=== PATIENT | male | born 1945 | race Caucasian/White ===

== ENCOUNTER → 2018-06-03 10:52 | Outpatient (CLI) | payer MEDICARE, SELFPAY ==
[2018-06-03 11:25] LABS: Bilirubin Moderate (Negative); Blood Large (Negative); Clarity Cloudy; Glucose Negative (Negative); Ketones 15 mg/dL (Negative); Leukocyte Esterase Negative (Negative); Nitrite Positive (Negative); Specific Gravity 1.025 (1.005-1.025); pH 5.5 (5-8)
[2018-06-03 11:50] LABS: Bacteria Moderate HPF (Negative); C & S Indicated? Yes; Casts Negative LPF (Negative); Crystals Negative HPF (Negative); Epithelial Cells Negative HPF (Negative); Mucus Negative (Negative); Other Cells Negative (Negative); RBC >50 (0-2); WBC Negative HPF (0-5)
== END ==
PROVIDERS: PCP Internal Medicine Geriatric Medicine; Visit Provider Internal Medicine Geriatric Medicine
DX: R31.0 Gross hematuria (principal)
CPT/HCPCS: 81003; 81015; 87086

== ENCOUNTER 2021-06-02 18:15 | Inpatient (IN) | payer MEDICARE, SELFPAY ==
[2021-06-02] VITALS (19 sets, daily range): BP systolic 122–148; BP diastolic 74–86; PULSE 54–80; RESP 8–21; TEMP 37.1; O2SAT 96–100
--- NOTE | 2021-06-02 19:00 | RT.EKG_ITS ---
APPROVED REPORT Exam: Resting ECG Reason for Exam: confusion Patient Location: E HR:74 bpm ECG Measurements Heart Rate 74 AXIS AR 145 P 66 QRSd 73 QRS 52 QT 401 T 63 QTc 453 Conclusion Sinus rhythm...normal P axis, V-rate 60- 99 Atrial premature complexes...SV complexes w/ short R-R intvls
--- NOTE | 2021-06-02 19:00 | DI.RAD_ITS ---
Exam(s) XR CHEST 2V PA LATERAL EXAM: XR CHEST 2V PA LATERAL CLINICAL HISTORY: confusion TECHNIQUE: 2D digital imaging was performed. COMPARISON: No exams were available for comparison FINDINGS: Heart size normal. Ascending aorta ectatic. Lungs clear. No infiltrate, effusion or pneumothorax. Degenerative changes in the spine. IMPRESSION: No acute abnormality. DATA REPOSITORY: RADIATION DOSE DELIVERED:
--- NOTE | 2021-06-02 19:00 | DI.CT_ITS ---
Exam(s) CT HEAD WO EXAM: CT HEAD WO CLINICAL HISTORY: confusion. TECHNIQUE: Imaging Protocol: Axial computed tomography images with coronal and sagittal reformatted images were created and reviewed COMPARISON: No exams were available for comparison FINDINGS: Ventricles and Extra axial spaces: Normal in size and morphology for the patient's age. Hemorrhage: None. Cerebral parenchyma: Atrophy. Mild white matter changes consistent with small vessel disease. Midline shift: None. Brainstem/Cerebellum: Normal. Calvarium: Normal. Visualized Paranasal sinuses/Mastoids: Mucosal thickening ethmoid sinuses IMPRESSION: No acute abnormality. RADIATION DOSE DELIVERED: 832.81mGy.cm Total DLP 832.81mGy.cm Total DLP DATA REPOSITORY: All CT scans at this facility are submitted to the National Radiology Data Registry (NRDR) Dose Index Registry (DIR) with the [employer] (ACR). RADIATION OPTIMIZATION: All CT scans at this facility use at least one of these dose optimization te chniques: automated exposure control; mA and/or kV adjustment per patient size (includes targeted exa ms where dose is matched to clinical indication); or iterative reconstruction.
--- NOTE | 2021-06-02 19:49 | ED.GENADUL_ITS ---
Discharge Plan Disposition Patient Disposition: HOME Condition: Serious Discharge Details Chief Complaint: AMS/LOC Clinical Impression: Confusion Primary Care Provider: Mariangel Tubbs ED Provider: Ct [facility] Home Meds and New Rx's Prescriptions: No Action mirtazapine [Remeron] 15 mg Tablet 15 mg PO TID RF: [address] brain does not show acute abnormality, CTA head and neck does not show acute abnormality Patient initially was cooperative although confused and quite weak I do not see any medical reason for patient's confusion I suspect he has progre ssion of his dementia Of note, at approximately 10:00 he became very agitated and confused, likely consistent with sundowning He was given 1.5 mg of Ativan and 2 mg of Haldol after reviewing EKG secondary to agitation, he became very combative with staff and his has left, she was very upset Patient will need to be admitted to the hospital for further evaluation observation Will observe closely as he has had a large dose of Ativan for age At this time he is resting comfortably at reevaluation in the room He is a DNR/DNI per who is his DPOA He otherwise has a negative diagnostic work-up Medical Records Medical records reviewed: Yes I reviewed the patient's medical records. Lab Data Lab results reviewed: Yes I reviewed the patient's lab results. HPI General Mode of arrival: wheelchair . Date/Time Provider Initiated Documentation: 06/02/21 18:42 . Limitations to Documentation: altered mental status . Information obtained by: family . HPI Narrative: This 75-year-old gentleman with history of Alzheimer's dementia presents with progressively worsening confusion over the past several days. Today he was nonsensical per . He states this is gradual in onset. She cannot really been drinking much at home which is why she is concerned. She states a similar episode occurred several years ago and patient received IV fluid resuscitation and was symptomatically improved. Denies any falls or injuries. Denies acute onset of symptoms. Secondary to weakness and confusion, brought him in for evaluation. Denies any urinary complaints. Denies any new medications. Denies any potential overdoses. Reportedly has had neurological testing at [facility] and was diagnosed with dementia 6 years ago. Not currently taking medications for the reportedly Related Data Home Medications Medication Instructions Recorded Confirmed mirtazapine [Remeron] 15 mg PO TID 06/02/21 06/02/21 Allergies Allergy/AdvReac Type Severity Reaction Status Date / Time No Known Allergies Allergy Unverified 06/02/21 18:38 General Stated Complaint: AMS/LOC GAGE: 3 Review of Systems Unobtainable due to mental status PFS Social History Smoking/Tobacco Use Status: Former Tobacco Use Smoking risk assessment performed?: Yes Alcohol Intake: former Drug use: Never Do you feel safe at home: Yes Do you feel safe in your relationship?: Yes Exam Const General: well developed and well groomed Orientation: alert Limitations: altered mental status HENMT Other: No visible sign of trauma, no hemotympanum Eyes Pupils: PERRL Neck Other: No carotid bruit Chest Chest: normal inspection of the chest Resp Effort & Inspection: normal respiratory effort Cardio Rate: regular rate Rhythm: regular rhythm GI Inspection: normal to inspection Skin General skin exam: no rashes or lesions noted Neuro General: patient alert Other: Gait unable to be assessed, able to follow basic commands Strength intact bilateral in upper lower extremities, negative pronator drift, negative heel gann Extrem General: normal to inspection Other: Distal pulses intact Psych Appearance: well kempt Speech and Movement: delayed speech and slowed movement Mood: labile mood Attitude: cooperative Course Vital Signs Vital signs: Vital Signs Temperature 37.1 C 06/02/21 18:34 Pulse 80 06/02/21 18:34 Respiratory Rate 16 06/02/21 18:34 Blood Pressure 122/86 06/02/21 18:34 Pulse Oximetry 97 06/02/21 18:34 Temperature 37.1 C 06/02/21 18:34 Temperature Source Temporal Artery Scan 06/02/21 18:34 Pulse 80 06/02/21 18:34 Respiratory Rate 16 06/02/21 18:34 Respiratory Effort Non-Labored 06/02/21 18:39 Blood Pressure 122/86 06/02/21 18:34 Blood Pressure Position Sitting 06/02/21 18:34 Pulse Oximetry 97 06/02/21 18:34 Oxygen Delivery Method Room Air 06/02/21 18:34 Oxygen Flow Rate 0 06/02/21 18:34 Pain Level 0 06/02/21 18:34
[2021-06-02 20:01] LABS: Abs Immature Grans 0.02 10^3/uL (0.0-0.06); Absolute Basophil Count 0.03 10^3/uL (0.0-0.2); Absolute Eosinophil Count 0.14 10^3/uL (0.0-0.7); Absolute Lymphocyte Count 1.12 10^3/uL (1.2-3.4); Absolute Monocyte Count 0.34 10^3/uL (0.1-0.8); Absolute Neutrophil Count 3.82 10^3/uL (1.2-6.7); Basophils % 0.5; Eosinophils % 2.6; HCT 39.6 % (40.0-50.0); HGB 13.5 g/dL (13.5-17.5); Immature Grans % 0.4; Lymphocytes % 20.5; MCH 31.5 pg (27.0-33.0); MCHC 34.1 % (32.0-36.0); MCV 92.3 fL (80-95); MPV 8.8 fL (8.0-11.0); Monocytes % 6.2; Neutrophils % 69.8; Nucleated RBC 0 %; Platelet Count 216 10^3/uL (130-400); RBC 4.29 10^6/uL (4.36-5.78); RDW 12.5 % (11.8-14.1); RDW-SD 42.6 fL; WBC 5.47 10^3/uL (4.4-10.8)
[2021-06-02] MEDS: Lactated Ringers 1,000 ML 1000 ML IV (20:07)
--- NOTE | 2021-06-02 20:07 | DI.VRAD_ITS ---
PROCEDURE INFORMATION: Exam: CT Head Without Contrast Exam date and time: 06/02/2021 7:02 PM Age: 75 years old Clinical indication: Altered mental status/memory loss; Patient HX: Confusion TECHNIQUE: Imaging protocol: Computed tomography of the head without contrast. COMPARISON: No relevant prior studies available. FINDINGS: Brain: There is no acute intracranial hemorrhage, mass effect or midline shift. No large acute territorial infarct identified. There are patchy regions of hypodensity in the periventricular and subcortical white matter, likely on the basis of chronic microvascular ischemic disease. Cerebral ventricles: The ventricles and sulci are prominent in size, which is at least in part due to global cerebral volume loss. Paranasal sinuses: There is mild mucosal thickening in the ethmoid sinuses. Mastoid air cells: Visualized mastoid air cells are well aerated. Bones/joints: Unremarkable. No acute fracture. Soft tissues: Unremarkable. IMPRESSION: No acute intracranial hemorrhage, mass effect or midline shift. Dictated and Authenticated by: Joan Rosado MD. Ordering:ZACK Fofana MD
[2021-06-02 20:18] LABS: ALT 17 U/L (16-63); AST 13 U/L (15-37); Albumin 3.5 g/dL (3.4-5.0); Alkaline Phosphatase 75 U/L (46-116); Anion Gap 4.3 mmol/L (3-11); BUN 12 mg/dL (7-18); Bilirubin, Total 0.5 mg/dL (0.2-1.0); CO2 29.7 mmol/L (21.0-32.0); CREATININE 1.3 mg/dL (0.70-1.30); Calcium 8.6 mg/dL (8.5-10.1); Chloride 107 mmol/L (98-107); Estimated GFR 53.53 (mL/min/1.73m2); Glucose 122 mg/dL (74-106); Potassium 3.8 mmol/L (3.5-5.1); Sodium 141 mmol/L (136-145); Total Protein 6.8 g/dL (6.4-8.2)
[2021-06-02 20:19] LABS: Troponin I < 0.05 ng/mL (<0.06)
[2021-06-02 20:24] LABS: Bilirubin Negative (Negative); Blood Trace-lysed (Negative); Clarity Clear (Clear); Glucose Negative (Negative); Ketones Negative (Negative); Leukocyte Esterase Negative (Negative); Nitrite Negative (Negative); Specific Gravity >= 1.030 (1.005-1.025)
--- NOTE | 2021-06-02 20:30 | DI.CT_ITS ---
Exam(s) CT BRAIN NECK CTA EXAM: CT BRAIN NECK CTA CLINICAL HISTORY: confusion, expressive aphasia. TECHNIQUE: Imaging Protocol: Axial CT angiography was performed with multi-slice acquisition and mu lti-planar and/or 3D reconstructions. CONTRAST MATERIAL: Intravenous: Omnipaque 350 Contrast volume:85 ml COMPARISON: CR,XR XR CHEST 2V PA LATERAL from 06/02/2021 CR,XR XR CHEST 2V PA LATERAL from 06/02/2021 FINDINGS: CT Head W/O and W contrast: Ventricles and Extra axial spaces: Normal in size and morphology for the patient's age. Hemorrhage: None. Cerebral parenchyma: Normal. Midline shift: None. Brainstem/Cerebellum: Normal. Calvarium: Normal. Visualized Paranasal sinuses/Mastoids: Clear. Soft Tissues: Unremarkable. Enhancement: Normal. CTA Brain W: Internal Carotid Arteries: Petrous: Normal. Cavernous: Normal. Cerebral: Normal. Middle Cerebral Arteries: Right: No aneurysm, occlusion or significant stenosis. Left: No aneurysm, occlusion or significant stenosis. Anterior Cerebral Arteries: Right: No aneurysm, occlusion or significant stenosis. Left: No aneurysm, occlusion or significant stenosis. Posterior cerebral Arteries: Right: No aneurysm, occlusion or significant stenosis. Left: No aneurysm, occlusion or significant stenosis. Vertebral Arteries: Right: No aneurysm, occlusion or significant stenosis. Left: No aneurysm, occlusion or significant stenosis. Basilar Artery: No aneurysm, occlusion or significant stenosis. CTA Neck W: Common Carotid: Right: No dissection, occlusion or significant stenosis. Minimal plaque at the bulb. Left: No dissection, occlusion or significant stenosis. Minimal plaque at the bulb. External Carotid: Right: No occlusion or significant stenosis. Left: No occlusion or significant stenosis. Internal Carotid: Right: Minimal plaque proximally. No dissection, occlusion or significant stenosis. Left: Minimal plaque proximally. No dissection, occlusion or significant stenosis. Vertebral Artery: Right: No dissection, occlusion or significant stenosis. Left: No dissection, occlusion or significant stenosis. Lung Apices: Normal. Bones: Degenerative disc changes greatest at C5-6 and C6-7.. Soft Tissues: Normal. Partially imaged right-sided aortic arch 3.4 cm. IMPRESSION: 1. Normal CTA examination of the [place]. 2. Unremarkable CT Head. 3. Probable right-sided aortic arch. Minimal plaque in the common carotid bulbs and proximal interna l carotid arteries. No significant stenosis. RADIATION DOSE DELIVERED: 1,302.22mGy.cm Total DLP DATA REPOSITORY: All CT scans at this facility are submitted to the National Radiology Data Registry (NRDR) Dose Index Registry (DIR) with the [employer] (ACR). RADIATION OPTIMIZATION: All CT scans at this facility use at least one of these dose optimization te chniques: automated exposure control; mA and/or kV adjustment per patient size (includes targeted exa ms where dose is matched to clinical indication); or iterative reconstruction.
[2021-06-02 20:32] LABS: Bacteria Negative HPF (Negative); C & S Indicated? No; Casts Negative LPF (Negative); Crystals Negative HPF (Negative); Epithelial Cells Rare HPF (Negative); Mucus Trace (Negative); WBC 0-2 HPF (0-5)
--- NOTE | 2021-06-02 20:39 | DI.VRAD_ITS ---
PROCEDURE INFORMATION: Exam: XR Chest Exam date and time: 06/02/2021 7:02 PM Age: 75 years old Clinical indication: Other: Confusion TECHNIQUE: Imaging protocol: XR of the chest. Views: 2 views. COMPARISON: No relevant prior studies available. FINDINGS: Lungs: No consolidation. Pleural spaces: No pleural effusion. No pneumothorax. Heart/Mediastinum: There is widening of the mediastinum, which could be positional in nature. No cardiomegaly. Bones/joints: Unremarkable. IMPRESSION: 1. No acute pneumonia or pulmonary edema. 2. Widening of the mediastinum, which could be positional in nature. However, if there is clinical concern for aortic disease, CTA of the chest may be obtained for further evaluation. Dictated and Authenticated by: Joan Rosado MD. Ordering:ZACK Fofana MD
[2021-06-02] MEDS: Omnipaque 350 MG/ML 100 ML BTL IJ (21:16)
[2021-06-02] MEDS: Normal Saline - Diluent 50 ML VIAL IV (21:17)
--- NOTE | 2021-06-02 22:29 | DI.VRAD_ITS ---
PROCEDURE INFORMATION: Exam: CT Angiography Head With Contrast, Arteriography Exam date and time: 06/02/2021 8:40 PM Age: 75 years old Clinical indication: Patient HX: Confusion, expressive aphasia TECHNIQUE: Imaging protocol: Computed tomography angiography of the head with contrast. Exam focused on the arteries. 3D rendering (Not supervised by radiologist): MIP and/or 3D reconstructed images were created by the technologist. COMPARISON: CT HEAD WO 06/02/2021 7:23 PM FINDINGS: ANTERIOR CIRCULATION: Right internal carotid artery: Unremarkable. Intracranial segment is patent with no significant stenosis. No aneurysm. Right middle cerebral artery: Unremarkable. No occlusion or significant stenosis. No aneurysm. Right anterior cerebral artery: Unremarkable. No occlusion or significant stenosis. No aneurysm. Left internal carotid artery: Unremarkable. Intracranial segment is patent with no significant stenosis. No aneurysm. Left middle cerebral artery: Unremarkable. No occlusion or significant stenosis. No aneurysm. Left anterior cerebral artery: Unremarkable. No occlusion or significant stenosis. No aneurysm. POSTERIOR CIRCULATION: Right vertebral artery: Unremarkable. No occlusion or significant stenosis. No aneurysm. Left vertebral artery: Unremarkable. No occlusion or significant stenosis. No aneurysm. Basilar artery: Unremarkable. No occlusion or significant stenosis. No aneurysm. Right posterior cerebral artery: Unremarkable. No occlusion or significant stenosis. No aneurysm. Left posterior cerebral artery: Unremarkable. No occlusion or significant stenosis. No aneurysm. Brain: Mild volume loss within the brain parenchyma. Multifocal and confluent areas of low attenuation are seen within the subcortical and periventricular white matter. No midline shift. No loss of [place]-white differentiation to suggest an acute cortical infarct. Cerebral ventricles: No hydrocephalus. Bones/joints: Unremarkable. No acute fracture. Soft tissues: Unremarkable. IMPRESSION: 1. No large vessel stenosis or occlusion within the intracranial arteries. 2. Mild volume loss with white matter changes most consistent with chronic microvascular ischemic disease. PROCEDURE INFORMATION: Exam: CT Angiography Neck With Contrast Exam date and time: 06/02/2021 8:40 PM Age: 75 years old Clinical indication: Patient HX: Confusion, expressive aphasia TECHNIQUE: Imaging protocol: Computed tomography angiography of the neck with contrast. 3D rendering (Not supervised by radiologist): MIP and/or 3D reconstructed images were created by the technologist. COMPARISON: CT HEAD WO 06/02/2021 7:23 PM FINDINGS: Right common carotid artery: No stenosis. No dissection or occlusion. Right internal carotid artery: Minimal atherosclerotic plaque within the right carotid bulb and proximal right ICA without stenosis, occlusion or dissection. Right external carotid artery: No occlusion or stenosis of the origin. Left common carotid artery: No stenosis. No dissection or occlusion. Left internal carotid artery: Minimal atherosclerotic plaque within the left carotid bulb and proximal left ICA without stenosis, occlusion or dissection. Left external carotid artery: Mild atherosclerotic plaque within the origin of the left external carotid artery without stenosis, occlusion or dissection. Right vertebral artery: No stenosis. No dissection or occlusion. Left vertebral artery: No stenosis. No dissection or occlusion. Aorta: A partially imaged possible right-sided aortic arch is seen, only partially imaged and evaluated on this study. Soft tissues: Normal. No significant soft tissue swelling. Bones/joints: No acute fracture. Lungs: The lung apices are well aerated. IMPRESSION: 1. No stenosis, dissection or occlusion within the extracranial arteries. 2. Possible right-sided aortic arch. This is only partially imaged and evaluated on this study. REFERENCES: NASCET CRITERIA. The degree of internal carotid artery stenosis is based on NASCET criteria. Normal is no stenosis. Mild is less than 50% stenosis. Moderate is 50-69% stenosis. Severe is 70% to 99% stenosis. Total occlusion is no detectable patent lumen. Dictated and Authenticated by: Charlene Selby MD. Ordering:ZACK Fofana MD
[2021-06-02] MEDS: LORazepam 2 MG/ML VIAL 0.5 MG IVP (23:00)
--- NOTE | 2021-06-02 23:04 | NUR.NOTE ---
Nursing Note: 06/02/21 [id number] Patient pulled out his IV, drsg applied and bleeding controlled. Patient trying to get out of bed, pulling at bp cuff and monitor and storage bin tender leads. ER Provider aware and new order received.
--- NOTE | 2021-06-02 23:07 | NUR.NOTE ---
Nursing Note: Patient assisted to use urinal, medicated as ordered by ER Provider for agitation. Warm blankets applied and lights dimmed in room.
--- NOTE | 2021-06-02 23:27 | W.PM.HP.N ---
Date of service: 06/02/21 Time of Service: 23:27 Assessment and Plan Assessment and plan (1) Confusion: Status: Acute Assessment and plan: At this point one would have to say this is simply progression of underlying known dementia (though pace is apparently rapid), but this remains a diagnosis of exclusion. It is possible some more acute process is brewing, precipitating this decline, but none evident at present. For now will manage symptomatically with prn ativan and Haldol, and will gently hydrate overnight. Will hold Remeron and will also check UDS (though no h/o exposure). ER reviewed ADs with , requests DNR. History of Present Illness History of Present Illness Chief Complaint: confusion Narrative: 75 male with h/o Parkinson's and dementia. Here with four days of worsening confusion and agitation, to point where unable to care for him. In ER w/u remarkably unrevealing, with normal CBC, chemistries (save glucose 122), urine, CXR and CT head. Patient given 0.5 Ativan and is receiving 2 Haldol IV at this writing. Patient unable to provide any history. reports to ER no new medications, remains on Remeron only, and no recent change in dose. Review of Systems Unobtainable due to mental status [facility] Social History Smoking/Tobacco Use Status: Former Tobacco Use Smoking risk assessment performed?: Yes Alcohol Intake: former Drug use: Never Do you feel safe at home: Yes Do you feel safe in your relationship?: Yes Meds Allergies and Home Medications Allergies Allergy/AdvReac Type Severity Reaction Status Date / Time No Known Allergies Allergy Unverified 06/02/21 18:38 Home Medications Medication Instructions Recorded Confirmed Type mirtazapine [Remeron] 15 mg PO TID 06/02/21 06/02/21 History Exam Narrative Exam Narrative: 130/77, 64, 37.1, 18, 97% RA. HEENT atraumatic; neck supple; lungs clear; heart RRR; abdomen soft and NT; extremities w/o edema; neuro restless, trying to get out of stretcher, Ox1, cogwheeling, moves all 4s Results Labs Result diagrams: 06/02/21 19:53 06/02/21 19:53 Labs: Laboratory Results - last 24 hr 06/02/21 06/02/21 06/02/21 19:53 19:53 20:10 WBC 5.47 RBC 4.29 L Hgb 13.5 Hct 39.6 L MCV 92.3 MCH 31.5 MCHC 34.1 RDW 12.5 Plt Count 216 MPV 8.8 Immature Gran % 0.4 Neutrophils % 69.8 Lymphocytes % 20.5 Monocytes % 6.2 Eosinophils % 2.6 Basophils % 0.5 Nucleated RBC % 0 Absolute Neutrophils 3.82 Absolute Lymphocytes 1.12 L Absolute Monocytes 0.34 Absolute Eosinophils 0.14 Absolute Basophils 0.03 Sodium 141 Potassium 3.8 Chloride 107 Carbon Dioxide 29.7 Anion Gap 4.3 BUN 12 Creatinine 1.3 Estimated GFR/1.73 m2 53.53 Glucose 122 H Calcium 8.6 Total Bilirubin 0.5 AST 13 L ALT 17 Alkaline Phosphatase 75 Troponin I < 0.05 Total Protein 6.8 Albumin 3.5 Urine Color Yellow Urine Clarity Clear Urine pH 6.0 Ur Specific [place] >= 1.030 H Urine Protein 30 H Urine Ketones Negative Urine Blood Trace-lysed H Urine Nitrite Negative Urine Bilirubin Negative Urine Urobilinogen 2.0 H Ur Leukocyte Esterase Negative Urine RBC 3-5 H Urine WBC 0-2 Ur Epithelial Cells Rare Urine Crystals Negative Urine Bacteria Negative Urine Casts Negative Urine Mucus Trace Ur Culture Indicated? No Urine Glucose Negative Last Vital Signs Temp 37.1 C 06/02/21 18:34 Pulse 59 L 06/02/21 22:00 Resp 18 06/02/21 22:10 BP 130/77 06/02/21 22:00 Pulse Ox 97 06/02/21 22:31
[2021-06-02] MEDS: Haloperidol 5 MG/ML VIAL 2 MG IV (23:43)
[2021-06-02] MEDS: LORazepam 2 MG/ML VIAL 1 MG IVP (23:44)
[2021-06-03] VITALS: BP 144/84; PULSE 60; RESP 16; O2SAT 98
[2021-06-03 00:04] LABS: Source Nasal/Nares
--- NOTE | 2021-06-03 00:26 | NUR.NOTE ---
Nursing Note: 06/02/21 at 2330 patient trying to pull out IV, trying to get up out of bed, agitated. Patient medicated as ordered by ER provider for continued agitation.
[2021-06-03 00:40] VITALS: BP 128/80; PULSE 78; RESP 16; TEMP 35.8; O2SAT 97
[2021-06-03 00:59] LABS: COVID-19 PCR Negative (Negative)
[2021-06-03] MEDS: Lactated Ringers 1,000 ML 75 ML IV (02:04)
[2021-06-03] MEDS: Normal Saline Flush 10 ML SYR (02:05)
[2021-06-03 05:46] LABS: *AMPHETAMINES SCREEN URINE Negative (Negative); *BARBITURATES SCREEN URINE Negative (Negative); *BENZODIAZEPINES SCREEN URINE Negative (Negative); Cannabinoids THC Negative (Negative); Cocaine Screen,Urine Negative (Negative); METHADONE URINE SCREEN Negative (Negative); OPIATES URINE SCREEN Negative (Negative)
[2021-06-03 05:47] LABS: Tricyclic Antidepressants Negative (Negative)
[2021-06-03 08:28] VITALS: BP 154/95; PULSE 77; RESP 18; TEMP 36.6; O2SAT 98
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
== END 2021-06-03 08:36 | disposition left against medical advice (07) | DRG 880 ==
LOC: ER 06-03 00:20 → MS 06-03 00:45
PROVIDERS: Admitting Provider General Practice; Emergency Provider Physician Assistant; PCP Internal Medicine Geriatric Medicine; Visit Provider General Practice
DX: F05 Delirium due to known physiological condition (principal); G20 Parkinson's disease; F02.80 Dementia in other diseases classified elsewhere, unspecified severity, without behavioral disturbance, psychotic disturbance, mood disturbance, and anxiety; Z20.822 Contact with and (suspected) exposure to COVID-19; Z87.891 Personal history of nicotine dependence
CPT/HCPCS: 70496; 70498; 80053; 80307; 87635; 93005; 96361; 96374; 96375; 96376; 99285; 70450; 71046; 81003; 81015; 84484; 85025; 93010; 99222; 99238; J1630; J2060; J3490

== ENCOUNTER 2021-06-06 20:48 | Inpatient (IN) | payer MEDICARE, SELFPAY ==
[2021-06-06 21:22] VITALS: BP 151/80; PULSE 68; RESP 16; TEMP 36.6; O2SAT 98
[2021-06-06] MEDS: OLANZapine 2.5 MG TAB PO ×2 (21:22→23:18)
[2021-06-06 21:29] LABS: Abs Immature Grans 0.02 10^3/uL (0.0-0.06); Absolute Basophil Count 0.02 10^3/uL (0.0-0.2); Absolute Eosinophil Count 0.16 10^3/uL (0.0-0.7); Absolute Lymphocyte Count 1.05 10^3/uL (1.2-3.4); Absolute Monocyte Count 0.33 10^3/uL (0.1-0.8); Absolute Neutrophil Count 3.59 10^3/uL (1.2-6.7); Basophils % 0.4; Eosinophils % 3.1; HCT 39.2 % (40.0-50.0); HGB 13.8 g/dL (13.5-17.5); Immature Grans % 0.4; Lymphocytes % 20.3; MCH 31.6 pg (27.0-33.0); MCHC 35.2 % (32.0-36.0); MCV 89.7 fL (80-95); Monocytes % 6.4; Neutrophils % 69.4; Nucleated RBC 0 %; RBC 4.37 10^6/uL (4.36-5.78); RDW 12.3 % (11.8-14.1); RDW-SD 40.1 fL; WBC 5.17 10^3/uL (4.4-10.8)
[2021-06-06 21:42] LABS: Magnesium 2.2 mg/dL (1.8-2.4)
[2021-06-06 21:54] LABS: ALT 19 U/L (16-63); AST 20 U/L (15-37); Albumin 3.5 g/dL (3.4-5.0); Alkaline Phosphatase 73 U/L (46-116); Anion Gap 3.6 mmol/L (3-11); BUN 14 mg/dL (7-18); Bilirubin, Total 0.6 mg/dL (0.2-1.0); CO2 28.4 mmol/L (21.0-32.0); CREATININE 1.4 mg/dL (0.70-1.30); Calcium 8.8 mg/dL (8.5-10.1); Chloride 107 mmol/L (98-107); Estimated GFR 49.14 (mL/min/1.73m2); Glucose 131 mg/dL (74-106); Potassium 3.6 mmol/L (3.5-5.1); Sodium 139 mmol/L (136-145); TSH (W/Ref FT4) 5.99 uIU/mL (0.36-3.74); Total Protein 6.8 g/dL (6.4-8.2)
[2021-06-06 22:04] LABS: ETHANOL BLOOD < 3.0 mg/dL (<3)
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
[2021-06-06] MEDS: LORazepam 1 MG TAB PO (22:55)
[2021-06-06 22:56] VITALS: BP 142/80; PULSE 72; RESP 18; TEMP 36.4; O2SAT 100
[2021-06-06 23:07] LABS: Source Nasal/Nares
[2021-06-06 23:57] VITALS: BP 129/82; PULSE 68; RESP 16; TEMP 36.7; O2SAT 97
[2021-06-06 23:57] LABS: COVID-19 PCR Negative (Negative)
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
[2021-06-07 00:13] LABS: Bacteria Negative HPF (Negative); Bilirubin Negative (Negative); Blood Trace-intact (Negative); C & S Indicated? C&S Done As Ordered; Casts Negative LPF (Negative); Clarity Clear (Clear); Crystals Negative HPF (Negative); Epithelial Cells Negative HPF (Negative); Glucose Negative (Negative); Ketones Negative (Negative); Leukocyte Esterase Negative (Negative); Mucus Negative (Negative); Nitrite Negative (Negative); RBC 0-2 HPF (0-2); Specific Gravity 1.025 (1.005-1.025); WBC 0-2 HPF (0-5)
[2021-06-07 00:17] LABS: *AMPHETAMINES SCREEN URINE Negative (Negative); *BARBITURATES SCREEN URINE Negative (Negative); *BENZODIAZEPINES SCREEN URINE Negative (Negative); Cannabinoids THC Negative (Negative); Cocaine Screen,Urine Negative (Negative); METHADONE URINE SCREEN Negative (Negative); OPIATES URINE SCREEN Negative (Negative)
[2021-06-07 00:18] LABS: Tricyclic Antidepressants Negative (Negative)
[2021-06-07 07:28] LABS: Abs Immature Grans 0.03 10^3/uL (0.0-0.06); Absolute Basophil Count 0.04 10^3/uL (0.0-0.2); Absolute Eosinophil Count 0.12 10^3/uL (0.0-0.7); Absolute Monocyte Count 0.36 10^3/uL (0.1-0.8); Basophils % 0.5; Eosinophils % 1.6; HCT 42.9 % (40.0-50.0); HGB 14.8 g/dL (13.5-17.5); Immature Grans % 0.4; Lymphocytes % 15.1; MCH 31.7 pg (27.0-33.0); MCHC 34.5 % (32.0-36.0); MCV 91.9 fL (80-95); MPV 9.1 fL (8.0-11.0); Monocytes % 4.9; Neutrophils % 77.5; Nucleated RBC 0 %; Platelet Count 250 10^3/uL (130-400); RBC 4.67 10^6/uL (4.36-5.78); RDW 12.3 % (11.8-14.1); RDW-SD 41.5 fL; WBC 7.29 10^3/uL (4.4-10.8)
[2021-06-07 07:30] LABS: Absolute Neutrophil Count 5.65 10^3/uL (1.2-6.7)
[2021-06-07 07:43] LABS: ALT 21 U/L (16-63); AST 19 U/L (15-37); Albumin 3.9 g/dL (3.4-5.0); Alkaline Phosphatase 78 U/L (46-116); Anion Gap 10.9 mmol/L (3-11); BUN 12 mg/dL (7-18); Bilirubin, Total 0.6 mg/dL (0.2-1.0); CO2 25.1 mmol/L (21.0-32.0); CREATININE 1.3 mg/dL (0.70-1.30); Calcium 9.2 mg/dL (8.5-10.1); Chloride 104 mmol/L (98-107); Estimated GFR 53.53 (mL/min/1.73m2); Glucose 106 mg/dL (74-106); Potassium 3.7 mmol/L (3.5-5.1); Sodium 140 mmol/L (136-145); Total Protein 7.4 g/dL (6.4-8.2)
[2021-06-07 07:47] VITALS: BP 132/71; PULSE 84; RESP 18; TEMP 36.9; O2SAT 99
[2021-06-07] MEDS: Mirtazapine 15 MG TAB PO (09:34)
[2021-06-07] MEDS: QUEtiapine 25 MG TAB 12.5 MG PO (09:35)
--- NOTE | 2021-06-07 11:31 | IN_ITS ---
Date of service: 06/07/21 Time of Service: 11:10 PT Notes Visit Reasons: DEMENTIA WITH BEHAVIORAL ABNORMALITIES Inpatient Physical Therapy Evaluation Date: 06/07/2021 Referring Doctor: Lucia Henderson PT Orders: PT CONSULT: Limited Ability Precautions: Standard, fall risk Patient Profile/Admitting Diagnosis: Patient is a 75-year-old male referred for evaluation secondary to limited ability due to dementia with behavioral abnormal ities. He was apparently admitted a few days ago and was signed out AMA by his . Was recently put on Seroquel but had missed a dose and became violent towards his . She brought him back to [facility] as she was unable to care for him and feared for her safety. PMHX: Medical History (Updated 06/07/21 @ 09:51 by Omari Rose) Dementia associated with other underlying disease with behavioral disturbance Insomnia Social History/Home Situation: Prior to admission at [facility] patient resides with in a multilevel home. Unable to acquire any significant history due to patient's dementia. Equipment Owned/DME: Unknown Subjective: Patient offers no subjective feedback. Essentially noncommunicative for today's evaluation. Objective: General Observation: At start of initial evaluation patient sleeping peacefully in bed landing on left side. Mental Status: Unable to recall person place or time Pain: No noted signs ROM: Right Upper Extremity: Within functional limits Left Upper Extremity: Within functional limits Right Lower Extremity: Within functional limits Left Lower Extremity: Within functional limits Strength: Right Upper Extremity: Grossly 4/5 glenohumeral joint abduction, flexion, bicep tricep. Fair route salesperson. Left Upper Extremity: Grossly 4/5 glenohumeral abduction, flexion, bicep and tricep. Fair route salesperson. Right Lower Extremity: 4/5 quads, 4 -/5 hamstrings and hip flexion. Left Lower Extremity: 4/5 quads, 4 -/5 hamstrings and hip flexion. *Difficult for patient to follow verbal cues for strength testing. This is a gross assessment. Sensation: Not tested Bed Mobility/Transfers: Bed mobility: Independent with transfer from supine to side-lying position. Supine to sit: Min assist x1 with head of bed at 30 degrees. Sit to stand: Min assist x1 Stand to sit: Contact-guard with verbal cues for sitting position on hospital bed Following evaluation discussion held with nursing who indicated patient was found walking out of his room in the hospital hallway. He apparently got out of his bed independently while into the hallway outside of his room. Nursing guided him back into his room into bed. Gait: Contact-guard x1. Patient ambulates 20 feet x 2 with no arm swing, short strides with festinating type gait pattern. Rigidity through the torso. No assistive device use with ambulation. Uncertain as to whether or not he has assistive device at home or even uses one. Balance: Static Sitting: Poor. Following supine to sit transfer patient required significant verbal cues and contact-guard to maintain upright sitting position. Once positioned comfortably on bedside with feet on floor this appeared to be more stable but challenging for the patient to follow verbal cues stemming from dementia. Dynamic Sitting: Poor Static Standing: Fair Dynamic Standing: Fair Special Tests: Mobility Limitations Standardized Measure [facility] AM-PAC 6 clicks Basic Mobility Inpatient Short Form: Raw Score: 18 Standardized Score:43.63 CMS Score: 46.58% Informed Consent/Education: Patient instructed in purpose of PT consult and plan of care. Assessment: Patient is a 75 year old male referred to physical therapy services with the diagnosis of dementia with behavioral abnormalities. Very challenging for completion of evaluation due to level of dementia. Patient not alert and oriented x3. Is able to follow simple verbal commands. Essentially noncommun icative during today's evaluation. Given level of dementia do recommend ambulation with contact-guard. His standing balance and dynamic balance are actually fair and difficult to assess sitting balance as he did require mod assist x1 but nursing indicated he was transferring in and out of his bed and walking through his hospital room into the [facility]opez without supervision. Difficult to assess motivation to participate in therapy due to his dementia. Impulsivity with ambulation task performance and increased risk for falls. Patient continues to present with clinical signs and symptoms consistent with current/admitting diagnoses that have resulted in mobility limitations, gait instability, generalized weakness, and impairment of motor control as demonstrated by the following impairment level findings: 1. Impaired sitting balance 2. Impaired activity tolerance 3. Fatigue 4. Declining motivation 5. Increasing impulsivity 6. Dementia Impairments are continuing to contribute to the following functional limitations: 1. Inability to safely ambulate independently and requiring physical assistance for safety issues. 2. Increase completion time for mobility ADL performance 3. Increased fall risk Patient is assessed as a 15027 moderate complexity based on the following: History: 69-year-old male with past medical history as indicated above Examination: Demonstrable impairment in strength, balance, and mobility level with underlying impairments and functional limitations as documented above in the [facility] inpatient Short form deficits score of 47% Presentation: Evolving Decision Makin moderate complexity Goals: Goals X1 week 1. Supine-Sit: Supervision 2. Sit-Supine: Supervision 3. Sit-Stand: Supervision 4. Stand-Sit : Supervision 5. Bed-Chair: Supervision 6. Chair-Bed: Supervision 7. Gait : Community distances greater than 200 feet with supervision 8. Stairs: Full flight up and down with use of railing and supervision 9. Independent with home exercise program [] 10. Balance: Patient able to sit independently bedside Plan of Care/Treatment Plan: 1-2x/day, 7 days/week x 1 week. Plan of care has been reviewed with the HOOP DRIVING MACHINE OPERATOR HELPER providing the service under Physical Therapy direction. Initiate Physical Therapy intervention for strengthening, bed mobility, transfers, gait, stairs, balance training, use of assistive device. DISCHARGE RECOMMENDATIONS: Based on level of dementia patient to benefit from placement in assisted facility in order to progress mobility, assess safety and identify additional equipment needs. TREATMENT CODE/TIME: 87077 x 20 minutes, 11:10 AM. Thank you for this referral. Arthur Resendez PT,DPT Disclaimer: This note was created using [employer] voice recognition software. It was reviewed for major content. However, there may be multiple small discrepancies and errors due to the voice recognition aspects of the software.
--- NOTE | 2021-06-07 15:31 | W.PM.PROGNOT ---
Date of Service Date of service: 06/07/21 Time of Service: 15:33 Assessment and Plan Assessment and plan (1) Dementia associated with other underlying disease with behavioral disturbance: Start date: 06/07/21 Start time: 15:40 Status: Acute Assessment and plan: This is a 75-year-old gentleman with worsening behavioral abnormalities and being violent at home with his having progressive dementia now on Seroquel and appearing calm after treatment with Zyprexa and Ativan in the ED. patient was recently admitted for confusion with mention of Parkinson's disease on the H&P but no history of patient being treated for this medically. He is continuing on Seroquel which should be adjusted to behavior. Supportive care and reevaluation of possible placement versus increased services at home for the patient's to care for help in his present advanced state of dementia. He worked with PT, will likely need placement. PT stated that he needs alot of cueing. Will add mirtazapem for sleep and agitation for night time. (2) Insomnia: Start date: 06/07/21 Start time: 15:43 Status: Chronic Assessment and plan: Continue Remeron low-dose with Seroquel possibly help with this problem as well. Scheduled at 1700 as well to help with sleep above discussed with Dr. Lei Qualifiers: Insomnia type: due to medical condition Qualified Code(s): G47.01 - Insomnia due to medical condition Subjective Subjective Patient reports: other Interval history since last seen: patient with severe dementia. Needs cueing for movements. PT recommending placement. No complaints Exam Narrative Exam Narrative: General: Patient is lean, normal development and in no acute distress. He is alert and oriented to possibly person and place. Recommend that he is in the hospital and is a patient but not to time or purpose. HEENT: Normocephalic, eyes with pupils equal and reactive to light symmetrically, extraocular movement intact and sclera anicteric. Oropharynx with moist mucosa. Neck: Supple without JVD. Back: Normal posture without CVA tenderness. Lungs: Clear to auscultation and percussion. Heart: Irregular rhythm with normal rate. No murmurs or gallops appreciated. Abdomen: Normal contour, soft and nontender to palpation with no palpable hepatosplenomegaly. Extremities: Without clubbing, cyanosis or pitting edema. Peripheral pulses intact. Skin: Normal color, warm and dry. Neuro: Cranial nerves II through XII are grossly intact, no focalizing motor deficits. No tremor. Psych: Flattened affect with normal mood at the time of my exam. No abnormal thought processes at the time of my exam. Remote and recent memory not intact with patient confused without being able to offer any history. Objective Last Vital Signs Temp 36.9 C 06/07/21 07:47 Pulse 84 06/07/21 07:47 Resp 18 06/07/21 07:47 BP 132/71 06/07/21 07:47 Pulse Ox 99 06/07/21 07:47 Laboratory Results - last 24 hr 06/06/21 06/06/21 06/06/21 21:25 21:25 21:25 WBC 5.17 RBC 4.37 Hgb 13.8 Hct 39.2 L MCV 89.7 MCH 31.6 MCHC 35.2 RDW 12.3 Plt Count MPV Immature Gran % 0.4 Neutrophils % 69.4 Lymphocytes % 20.3 Monocytes % 6.4 Eosinophils % 3.1 Basophils % 0.4 Nucleated RBC % 0 Absolute Neutrophils 3.59 Absolute Lymphocytes 1.05 L Absolute Monocytes 0.33 Absolute Eosinophils 0.16 Absolute Basophils 0.02 Sodium 139 Cancelled Potassium 3.6 Cancelled Chloride 107 Cancelled Carbon Dioxide 28.4 Cancelled Anion Gap 3.6 Cancelled BUN 14 Cancelled Creatinine 1.4 H Cancelled Estimated GFR/1.73 m2 49.14 Cancelled Glucose 131 H Cancelled Calcium 8.8 Cancelled Magnesium 2.2 Total Bilirubin 0.6 Cancelled AST 20 Cancelled ALT 19 Cancelled Alkaline Phosphatase 73 Cancelled Total Protein 6.8 Cancelled Albumin 3.5 Cancelled TSH 5.99 H Free T4 1.10 Urine Color Urine Clarity Urine pH Ur Specific [place] Urine Protein Urine Ketones Urine Blood Urine Nitrite Urine Bilirubin Urine Urobilinogen Ur Leukocyte Esterase Urine RBC Urine WBC Ur Epithelial Cells Urine Crystals Urine Bacteria Urine Casts Urine Mucus Ur Culture Indicated? Urine Glucose Urine Opiates Screen Urine Methadone Screen Ur Barbiturates Screen Ur Tricyclics Screen Ur Amphetamines Screen U Benzodiazepines Scrn Urine Cocaine Screen Ur THC Screen Ethyl Alcohol < 3.0 COVID-19 Source SARS-CoV-2 (PCR) 06/06/21 06/06/21 06/06/21 23:01 23:50 23:50 WBC RBC Hgb Hct MCV MCH MCHC RDW Plt Count MPV Immature Gran % Neutrophils % Lymphocytes % Monocytes % Eosinophils % Basophils % Nucleated RBC % Absolute Neutrophils Absolute Lymphocytes Absolute Monocytes Absolute Eosinophils Absolute Basophils Sodium Potassium Chloride Carbon Dioxide Anion Gap BUN Creatinine Estimated GFR/1.73 m2 Glucose Calcium Magnesium Total Bilirubin AST ALT Alkaline Phosphatase Total Protein Albumin TSH Free T4 Urine Color Yellow Urine Clarity Clear Urine pH 7.0 Ur Specific [place] 1.025 Urine Protein Negative Urine Ketones Negative Urine Blood Trace-intact H Urine Nitrite Negative Urine Bilirubin Negative Urine Urobilinogen 1.0 H Ur Leukocyte Esterase Negative Urine RBC 0-2 Urine WBC 0-2 Ur Epithelial Cells Negative Urine Crystals Negative Urine Bacteria Negative Urine Casts Negative Urine Mucus Negative Ur Culture Indicated? C&S Done As Ordered Urine Glucose Negative Urine Opiates Screen Negative Urine Methadone Screen Negative Ur Barbiturates Screen Negative Ur Tricyclics Screen Negative Ur Amphetamines Screen Negative U Benzodiazepines Scrn Negative Urine Cocaine Screen Negative Ur THC Screen Negative Ethyl Alcohol COVID-19 Source Nasal/Nares SARS-CoV-2 (PCR) Negative 06/07/21 06/07/21 06:53 06:53 WBC 7.29 D RBC 4.67 Hgb 14.8 Hct 42.9 MCV 91.9 MCH 31.7 MCHC 34.5 RDW 12.3 Plt Count 250 MPV 9.1 Immature Gran % 0.4 Neutrophils % 77.5 Lymphocytes % 15.1 Monocytes % 4.9 Eosinophils % 1.6 Basophils % 0.5 Nucleated RBC % 0 Absolute Neutrophils 5.65 Absolute Lymphocytes 1.10 L Absolute Monocytes 0.36 Absolute Eosinophils 0.12 Absolute Basophils 0.04 Sodium 140 Potassium 3.7 Chloride 104 Carbon Dioxide 25.1 Anion Gap 10.9 BUN 12 Creatinine 1.3 Estimated GFR/1.73 m2 53.53 Glucose 106 Calcium 9.2 Magnesium Total Bilirubin 0.6 AST 19 ALT 21 Alkaline Phosphatase 78 Total Protein 7.4 Albumin 3.9 TSH Free T4 Urine Color Urine Clarity Urine pH Ur Specific [place] Urine Protein Urine Ketones Urine Blood Urine Nitrite Urine Bilirubin Urine Urobilinogen Ur Leukocyte Esterase Urine RBC Urine WBC Ur Epithelial Cells Urine Crystals Urine Bacteria Urine Casts Urine Mucus Ur Culture Indicated? Urine Glucose Urine Opiates Screen Urine Methadone Screen Ur Barbiturates Screen Ur Tricyclics Screen Ur Amphetamines Screen U Benzodiazepines Scrn Urine Cocaine Screen Ur THC Screen Ethyl Alcohol COVID-19 Source SARS-CoV-2 (PCR)
[2021-06-07] MEDS: Mirtazapine 15 MG TAB 7.5 MG PO (16:12)
[2021-06-07] MEDS: Heparin 5,000 UNITS/ML VIAL 5000 UNITS SC (16:13)
[2021-06-07] MEDS: QUEtiapine 25 MG TAB PO (19:40)
[2021-06-08 07:30] VITALS: BP 105/69; PULSE 67; RESP 16; TEMP 36.9; O2SAT 98
[2021-06-08] MEDS: QUEtiapine 25 MG TAB PO ×2 (09:02→19:45)
--- NOTE | 2021-06-08 12:15 | PT.INTREAT ---
PT Notes Visit Reasons: DEMENTIA WITH BEHAVIORAL ABNORMALITIES Inpatient Physical Therapy Treatment Note [facility] Date: 06/08/21 SUBJECTIVE: Rajendra is willing to go for a walk with me. OBJECTIVE: [] BED MOBILITY/TRANSFERS Sit-stand: CGA Stand-sit: CGA GAIT Assistive Device: none, TELECOM MANAGER Weight bearing: full Assist: CGA Distance: 250' ASSESSMENT: tolerated session well. Not able to follow too many directions. Did better with simple directions. Very confused but pleasant. PLAN: will continue to progress his functional mobility to tolerance. TREATMENT CODE/TIME: 15 min [id number].
--- NOTE | 2021-06-08 13:29 | PHA.REVIEW ---
Pharmacy Admission Review - Admission Clinical Review (Last Updated 06/07/21 @ 09:51 by Omari Rose) Dementia associated with other underlying disease with behavioral disturbance (Acute) Confusion (Acute) No Known Allergies Allergy (Unverified 06/06/21 21:24) Resuscitation Status DNR/DNI Height 5 ft 9 in Weight 68.6 kg - Renal Dosing Renal Dosing: BUN 12 mg/dL (7-18) 06/07/21 06:53 Creatinine 1.3 mg/dL (0.70-1.30) 06/07/21 06:53 Medications needing adjustments: Reviewed (Crcl ~46 mL/min current meds okay) - Anticoagulation Anticoagulation: Hgb 14.8 g/dL (13.5-17.5) 06/07/21 06:53 Hct 42.9 % (40.0-50.0) 06/07/21 06:53 Plt Count 250 10^3/uL (130-400) 06/07/21 06:53 Creatinine 1.3 mg/dL (0.70-1.30) 06/07/21 06:53 DVT Prophylaxis: Reviewed Medications: Heparin - Opiate Usage Evaluate Pain Scale/Pains Meds: N/A - Relevant Labs Sodium 140 mmol/L (136-145) 06/07/21 06:53 Potassium 3.7 mmol/L (3.5-5.1) 06/07/21 06:53 Chloride 104 mmol/L (98-107) 06/07/21 06:53 Magnesium 2.2 mg/dL (1.8-2.4) 06/06/21 21:25 Electrolytes, C-Reactive P, ESR: Reviewed - DM Control DM Control: Glucose 106 mg/dL (74-106) 06/07/21 06:53 Insulin Dosing: N/A - Heart Failure/ID EF%, NEVA's, B-Blockers, Diuretics: N/A - BP Control BP Control: Blood Pressure 105/69 If elevated: N/A - Qtc Review If Elevated: N/A - IV to PO Switch IV Medications: Reviewed - Home Meds Home Med List reviewed: Reviewed Relevent Home Meds Not ordered & why?: Both home meds are currently ordered, but dosages have been adjusted. - Current meds Current Medication Order Review: Reviewed - Comments Comments/Follow Ups: Watch VS, labs and for med changes.
[2021-06-08 16:16] VITALS: BP 107/71; PULSE 65; RESP 16; TEMP 36.7; O2SAT 99
[2021-06-08] MEDS: Mirtazapine 15 MG TAB 7.5 MG PO (17:36)
--- NOTE | 2021-06-08 18:45 | PGE_ITS ---
Date of Service Date of service: 06/08/21 Time of Service: 18:45 Assessment and Plan Assessment and plan (1) Dementia associated with other underlying disease with behavioral disturbance: Start date: 06/08/21 Start time: 18:47 Status: Acute Assessment and plan: On seroquel and mirtazpem for behavior and dementia, no outbursts or issues at this time. He enjoys ambulating in the hallway. PT to work with him He needs continuos cuing. CM to refer to Agustina Continue to monitor behaviour (2) Insomnia: Start date: 06/08/21 Start time: 18:49 Status: Chronic Assessment and plan: Continue Remeron low-dose with Seroquel possibly help with this problem as well. Scheduled at 1700 as well to help with sleep above discussed with Dr. Lei Qualifiers: Insomnia type: due to medical condition Qualified Code(s): G47.01 - Insomnia due to medical condition (3) Confusion: Start date: 06/08/21 Start time: 18:50 Status: Chronic Assessment and plan: with severe dementia (4) DVT prophylaxis: Start date: 06/08/21 Start time: 18:50 Status: Acute Assessment and plan: Heparin subcu (5) Discharge planning issues: Start date: 06/08/21 Start time: 18:50 Status: Acute Assessment and plan: Cm to refer to Agustina. discussed with Dr. Lei Subjective Subjective Patient reports: no new complaints Interval history since last seen: Resting in bed, cooperative, no outbursts or behavioral issues continue seroquel and mirtazepam. CM to refer to Agustina. Exam Narrative Exam Narrative: General: Patient is lean, normal development and in no acute distress. He is alert and oriented to possibly person and place. Recommend that he is in the hospital and is a patient but not to time or purpose. HEENT: Normocephalic, eyes with pupils equal and reactive to light symmetrically , extraocular movement intact and sclera anicteric. Oropharynx with moist mucosa. Neck: Supple without JVD. Back: Normal posture without CVA tenderness. Lungs: Clear to auscultation and percussion. Heart: Irregular rhythm with normal rate. No murmurs or gallops appreciated. Abdomen: Normal contour, soft and nontender to palpation with no palpable hepatosplenomegaly. Extremities: Without clubbing, cyanosis or pitting edema. Peripheral pulses intact. Skin: Normal color, warm and dry. Neuro: Cranial nerves II through XII are grossly intact, no focalizing motor deficits. No tremor. Psych: Flattened affect with normal mood at the time of my exam. No abnormal thought processes at the time of my exam. Remote and recent memory not intact with patient confused without being able to offer any history. Objective Last Vital Signs Temp 36.7 C 06/08/21 16:16 Pulse 65 06/08/21 16:16 Resp 16 06/08/21 16:16 BP 107/71 06/08/21 16:16 Pulse Ox 99 06/08/21 16:16
[2021-06-08 23:28] VITALS: BP 122/75; PULSE 65; RESP 14; TEMP 36.6; O2SAT 100
[2021-06-09] MEDS: Heparin 5,000 UNITS/ML VIAL 5000 UNITS SC ×2 (06:07→14:16)
[2021-06-09 07:20] LABS: Abs Immature Grans 0.02 10^3/uL (0.0-0.06); Absolute Basophil Count 0.04 10^3/uL (0.0-0.2); Absolute Eosinophil Count 0.19 10^3/uL (0.0-0.7); Absolute Monocyte Count 0.29 10^3/uL (0.1-0.8); Absolute Neutrophil Count 3.05 10^3/uL (1.2-6.7); Basophils % 0.8; HCT 38.5 % (40.0-50.0); HGB 13.3 g/dL (13.5-17.5); Immature Grans % 0.4; Lymphocytes % 25.1; MCH 32.1 pg (27.0-33.0); MCHC 34.5 % (32.0-36.0); MPV 9.4 fL (8.0-11.0); Monocytes % 6.1; Neutrophils % 63.6; Nucleated RBC 0 %; Platelet Count 206 10^3/uL (130-400); RBC 4.14 10^6/uL (4.36-5.78); RDW 12.8 % (11.8-14.1); RDW-SD 43.8 fL; WBC 4.79 10^3/uL (4.4-10.8)
[2021-06-09 07:32] LABS: Anion Gap 3.7 mmol/L (3-11); BUN 17 mg/dL (7-18); CO2 31.3 mmol/L (21.0-32.0); CREATININE 1.3 mg/dL (0.70-1.30); Calcium 8.6 mg/dL (8.5-10.1); Chloride 108 mmol/L (98-107); Estimated GFR 53.53 (mL/min/1.73m2); Glucose 93 mg/dL (74-106); Potassium 4.4 mmol/L (3.5-5.1); Sodium 143 mmol/L (136-145)
[2021-06-09] MEDS: QUEtiapine 25 MG TAB PO ×2 (07:45→19:57)
[2021-06-09 08:11] VITALS: BP 121/76; PULSE 57; RESP 18; TEMP 37; O2SAT 98
--- NOTE | 2021-06-09 09:08 | INITIAL_ITS ---
- If Service Date Differs Date of service: 06/09/21 Time of Service: 09:08 Care Management Initial Assess REASON FOR HOSPITALIZATION:: Dementia with behavioral abnormalities PAST MEDICAL HISTORY/PAST SURGICAL HISTORY:: Dementia associated with other underlying disease with behavioral disturbance. Insomnia PREVIOUS FUNCTIONAL STATUS/SOCIAL/FAMILY SUPPORTS:: Rajendra lives with his Olga in [place]. He has 2 sons and a daughter who he feels are supportive to his healthcare needs. 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 Rajendra's has dementia his is his caregiver and his healthcare agent, not his DPOA. CM will continue to support. CURRENT FUNCTIONAL STATUS:: Rajendra was sitting up in his chair when CM met with him. He was cooperative, pleasant and confused. He was having some stomach pain earlier this morning, better after having a BM. ADVANCE DIRECTIVES:: None on file Has patient been provided with info about the portal/API?: Yes Did the patient sign up for the portal?: No CODE STATUS:: DNR/DNI INSURANCE COVERAGE / FINANCIAL ISSUES:: Medicare CURRENT HOME/COMMUNITY SERVICES/EQUIPMENT:: None PRIMARY CARE PHYSICIAN:: Mariangel Tubbs POTENTIAL DISCHARGE NEEDS:: Unclear disposition at this time. CM will continue to follow. PATIENT/FAMILY EDUCATION NEEDS:: Rewiew discharge instuctions, ask me three ANTICIPATED BARRIERS TO DISCHARGE:: None identified at this time. CM will continue to follow. TRANSPORTATION:: Dependant on disposition: EMS to [facility] vs home via private vehicle with PLAN:: CM sent a referral to [facility]. They are in the process of reviewing the referral. CM will continue to follow.
--- NOTE | 2021-06-09 09:22 | PT.INTREAT ---
Date of service: 06/09/21 Time of Service: 09:22 PT Notes Visit Reasons: Dementia with behavioral abnormalities Inpatient Physical Therapy Treatment Note [facility] Date: 06/09/21 SUBJECTIVE: Initially appeared leary about working with PT but patient eventually warmed up and agreed work with PT. Did not verbalize any pain, dizziness, discomfort throughout session. Did indicate about not being clear inthe head at the start. OBJECTIVE: Alert but appeared easily distracted and confused. Able to follow single-step commands. Responds well to calm, soft voice. Increased pill-rolling tremor in R hand with movement. BED MOBILITY/TRANSFERS Sit-stand: supervision Stand-sit: supervision GAIT Assistive Device: None Weight bearing: FWB Assist: stand by assist Distance: 520 feet Deviation: Minimal path deviation. Easily distracted. No LOB. No SOB. NuStep: Enjoyed new challenge of doing the NuStep with resistance of 9 and duration of 8 minutes with good response. ASSESSMENT: Patient needs supervision with mobility ADL performance. Has not manifested with iolent or aggressive tendencies during this session. PLAN: Will attempt to progress balance skills while awaiting placement ([facility]NF vs. [facility]). TREATMENT CODE/TIME: 00020 x 20 minutes, 91181 x 10 minutes beginning at 9:22 AM.
--- NOTE | 2021-06-09 11:20 | W.PM.PROGNOT ---
Date of Service Date of service: 06/09/21 Time of Service: 11: Assessment and Plan Assessment and plan (1) Dementia associated with other underlying disease with behavioral disturbance: Start date: 06/09/21 Start time: Status: Acute Assessment and plan: On seroquel and mirtazpem for behavior and dementia, no outbursts or issues at this time. He enjoys ambulating in the hallway. Continue PT He needs continuos cuing. CM to refer to Agustina Continue to monitor behaviour (2) Insomnia: Start date: 06/09/21 Start time: Status: Chronic Assessment and plan: Continue Remeron low-dose with Seroquel possibly help with this problem as well. Scheduled at 1700 as well to help with sleep Qualifiers: Insomnia type: due to medical condition Qualified Code(s): G47.01 - Insomnia due to medical condition (3) Confusion: Start date: 06/09/21 Start time: Status: Chronic Assessment and plan: with severe dementia oriented only to self (4) DVT prophylaxis: Start date: 06/09/21 Start time: 24 Status: Acute Assessment and plan: Heparin subcu (5) Discharge planning issues: Start date: 06/09/21 Start time: Status: Acute Assessment and plan: Cm to refer to Agustina. discussed with Dr. Lei Subjective Subjective Patient reports: no new complaints Interval history since last seen: Sitting up in chair. No new complaints oriented only to self. Exam Narrative Exam Narrative: General: Patient is lean, normal development and in no acute distress. He is alert and oriented to possibly person. HEENT: Normocephalic, eyes with pupils equal and reactive to light symmetrically, extraocular movement intact and sclera anicteric. Neck: Supple without JVD. Back: Normal posture without CVA tenderness. Lungs: Clear to auscultation and percussion. Heart: Irregular rhythm with normal rate. No murmurs or gallops appreciated. Abdomen: Normal contour, soft and nontender to palpation with no palpable hepatosplenomegaly. Extremities: Without clubbing, cyanosis or pitting edema. Peripheral pulses intact. Skin: Normal color, warm and dry. Neuro: Cranial nerves II through XII are grossly intact, no focalizing motor deficits. No tremor. Psych: Flattened affect with normal mood at the time of my exam. No abnormal thought processes at the time of my exam. Remote and recent memory not intact with patient confused without being able to offer any history. Objective Last Vital Signs Temp 37 C 06/09/21 08:11 Pulse 57 L 06/09/21 08:11 Resp 18 06/09/21 08:11 BP 121/76 06/09/21 08:11 Pulse Ox 98 06/09/21 08:11 Laboratory Results - last 24 hr 06/09/21 06/09/21 06:30 06:30 WBC 4.79 RBC 4.14 L Hgb 13.3 L Hct 38.5 L MCV 93.0 MCH 32.1 MCHC 34.5 RDW 12.8 Plt Count 206 MPV 9.4 Immature Gran % 0.4 Neutrophils % 63.6 Lymphocytes % 25.1 Monocytes % 6.1 Eosinophils % 4.0 Basophils % 0.8 Nucleated RBC % 0 Absolute Neutrophils 3.05 Absolute Lymphocytes 1.20 Absolute Monocytes 0.29 Absolute Eosinophils 0.19 Absolute Basophils 0.04 Sodium 143 Potassium 4.4 Chloride 108 H Carbon Dioxide 31.3 Anion Gap 3.7 BUN 17 Creatinine 1.3 Estimated GFR/1.73 m2 53.53 Glucose 93 Calcium 8.6
--- NOTE | 2021-06-09 14:34 | CHAPLAIN ---
Rajendra was eating lunch when I visited. When I introduced myself, he told me that he might need a identity access management architect, because he might need to get . Later he told me that he hopes to get . He was able to tell me where he lives and respond to some questions. His response were slow and he spoke slowly He said I could visit again.
[2021-06-09 15:15] VITALS: BP 109/72; PULSE 67; RESP 18; TEMP 36.7; O2SAT 99
[2021-06-09] MEDS: Mirtazapine 15 MG TAB 7.5 MG PO (16:50)
[2021-06-09 23:31] VITALS: BP 117/79; PULSE 56; RESP 18; TEMP 35.8; O2SAT 99
[2021-06-10 07:18] LABS: HCT 42.2 % (40.0-50.0); HGB 14.3 g/dL (13.5-17.5); MCH 31.6 pg (27.0-33.0); MCHC 33.9 % (32.0-36.0); MCV 93.4 fL (80-95); MPV 9.2 fL (8.0-11.0); Platelet Count 233 10^3/uL (130-400); RBC 4.52 10^6/uL (4.36-5.78); RDW 12.8 % (11.8-14.1); RDW-SD 43.7 fL; WBC 4.69 10^3/uL (4.4-10.8)
[2021-06-10] MEDS: QUEtiapine 25 MG TAB PO ×3 (07:30→19:40)
[2021-06-10 07:38] VITALS: BP 125/69; PULSE 70; RESP 16; TEMP 36.2
--- NOTE | 2021-06-10 07:45 | RT.EKG_ITS ---
APPROVED REPORT Exam: Resting ECG Reason for Exam: required for ray of mccool junction Patient Location: I HR:82 bpm ECG Measurements Heart Rate 82 AXIS [place] 132 P 78 QRSd 78 QRS 87 QT 374 T 70 QTc 437 Conclusion Sinus rhythm...normal P axis, V-rate 60- 99
--- NOTE | 2021-06-10 08:48 | CMPROGNOTE_ITS ---
- If Service Date Differs Date of service: 06/10/21 Time of Service: 08:48 Care Management Progress Note S/O: Rajendra was sitting up in his chair when CM met with him visiting with his Olga and daughter Sangeeta. Rajendra was calm, pleasant and easily directable to simple cues. CM will continue to support. A: 75 year old male admitted to [facility] on 06/08/2021 for Dementia with behavioral abnormalities. P: Rajendra will likely go to a SNF for short term rehab before returning home. Referrals were sent to [facility] at the family's request and Rajendra's consent. CM will follow up with the facility providers and plan of care and transportation.
[2021-06-10] MEDS: Milk of Magnesia 30 ML CUP PO (10:00)
[2021-06-10] MEDS: Docusate Sodium 100 MG CAP PO (12:38)
[2021-06-10] MEDS: Polyethylene Glycol 3350 17 GM PACKET PO (12:38)
[2021-06-10] MEDS: Heparin 5,000 UNITS/ML VIAL 5000 UNITS SC (13:17)
--- NOTE | 2021-06-10 13:52 | PT.INTREAT ---
PT Notes Visit Reasons: Dementia with behavioral abnormalities 06/10/2021 SUBJECTIVE: Pt offers no new complaints. States he is very busy untangling cords. OBJECTIVE: Pt has been up walking with nursing. Treatment focused on strengthening and balance activities as noted on flow sheet. Pt requires CGA for small TEJAS balance and dynamic walking. Cues for upright posturing throughout. He also completes seated LE strengthening. Refer to flow sheet for all specifics. Direct time: 15 minutes([id number]) Estrella Rhodes PTA
--- NOTE | 2021-06-10 14:30 | PDOC.CMDIS ---
- If Service Date Differs Date of service: 06/10/21 Time of Service: 14:30 Care Management Discharge Reason for Hospitalization: Dementia with behavioral abnormalities
[2021-06-10] MEDS: Mirtazapine 15 MG TAB 7.5 MG PO (16:47)
[2021-06-10 16:48] VITALS: BP 127/86; PULSE 64; RESP 18; TEMP 36.5; O2SAT 98
--- NOTE | 2021-06-10 17:23 | W.PM.PROGNOT ---
Date of Service Date of service: 06/10/21 Time of Service: 17:23 Assessment and Plan Assessment and plan (1) Dementia associated with other underlying disease with behavioral disturbance: Start date: 06/10/21 Start time: 10:30 Status: Acute Assessment and plan: On seroquel and mirtazpem for behavior and dementia, no outbursts or issues at this time. He enjoys ambulating in the hallway. Continue PT He needs continuos cuing. CM to refer to Agustina Continue to monitor behaviour, did require extra dose of seroquel EKG with NSR, no ectopic beats (2) Insomnia: Start date: 06/10/21 Start time: 10:30 Status: Chronic Assessment and plan: Continue Remeron low-dose with Seroquel possibly help with this problem as well. Scheduled at 1700 as well to help with sleep Qualifiers: Insomnia type: due to medical condition Qualified Code(s): G47.01 - Insomnia due to medical condition (3) Confusion: Start date: 06/10/21 Start time: 10:30 Status: Chronic Assessment and plan: with severe dementia oriented only to self (4) DVT prophylaxis: Start date: 06/10/21 Start time: 10:30 Status: Acute Assessment and plan: Heparin subcu (5) Discharge planning issues: Start date: 06/10/21 Start time: 10:30 Status: Acute Assessment and plan: Cm to refer to Agustina. discussed with Dr. Lei Subjective Subjective Patient reports: other Interval history since last seen: Slight agitation this afternoon requiring an extra dose of seroquel. Otherwise he has not had any other behavioral issues. Oriented to self only. Exam Narrative Exam Narrative: General: Patient is lean, normal development and in no acute distress. He is alert and oriented to possibly person. HEENT: Normocephalic, eyes with pupils equal and reactive to light symmetrically, extraocular movement intact and sclera anicteric. Neck: Supple without JVD. Back: Normal posture without CVA tenderness. Lungs: Clear to auscultation and percussion. Heart: Irregular rhythm with normal rate. No murmurs or gallops appreciated. Abdomen: Normal contour, soft and nontender to palpation with no palpable hepatosplenomegaly. Extremities: Without clubbing, cyanosis or pitting edema. Peripheral pulses intact. Skin: Normal color, warm and dry. Neuro: Cranial nerves II through XII are grossly intact, no focalizing motor deficits. No tremor. Psych: Flattened affect with normal mood at the time of my exam. No abnormal thought processes at the time of my exam. Remote and recent memory not intact with patient confused without being able to offer any history. Objective Last Vital Signs Temp 36.5 C 06/10/21 16:48 Pulse 64 06/10/21 16:48 Resp 18 06/10/21 16:48 BP 127/86 06/10/21 16:48 Pulse Ox 98 06/10/21 16:48 Laboratory Results - last 24 hr 06/10/21 06:40 WBC 4.69 RBC 4.52 Hgb 14.3 Hct 42.2 MCV 93.4 MCH 31.6 MCHC 33.9 RDW 12.8 Plt Count 233 MPV 9.2
[2021-06-11 00:16] VITALS: BP 109/74; PULSE 60; RESP 18; TEMP 35.7; O2SAT 96
[2021-06-11] MEDS: Heparin 5,000 UNITS/ML VIAL 5000 UNITS SC ×2 (06:34→14:48)
[2021-06-11 07:07] VITALS: BP 119/77; PULSE 74; RESP 16; TEMP 37; O2SAT 99
[2021-06-11] MEDS: Acetaminophen 325 MG TAB 650 MG PO ×2 (07:32→19:43)
[2021-06-11] MEDS: QUEtiapine 25 MG TAB PO ×2 (07:32→19:43)
--- NOTE | 2021-06-11 08:37 | PDOC.CMPRO ---
- If Service Date Differs Date of service: 06/11/21 Time of Service: 08:37 Care Management Progress Note S/O: Rajendra was sitting quietly in his chair visiting with his when CM met with him. Earlier Rajendra had an episode where he became upset, wanting to go home. He pushed his tray table into the hallway and pushed staff away. He required IM Ativan to regain control. CM spoke with Olga about Rajendra's new onset of aggressive behavior. CHAVA offered Olga information on Emergency Temporary Guardianship. Olga has the paperwork she needs to file this motion with the court and is meeting with Franny aPtel from the [facility] [place] [facility] tomorrow at 0830am for guidance filling it out. Also, Olga is going to call Rajendra's doctor at [facility] who previously told her they would personally write a letter in support of her as guardian when the time came. CM continues to support. A: 75 year old male admitted to [facility] on 06/08/2021 for Dementia with behavioral abnormalities. P: Unclear of disposition at this time. Olga is in the process of filling out paperwork for Emergency Temporary Guardianship due to changes in his behavioral status. Per [facility] they prefer to have an appointed guardian prior to new patient admissions to support safe discharges. CHAVA will connect with [facility] after paperwork is complete. CM will continue to support. JENNY
[2021-06-11] MEDS: LORazepam 2 MG/ML VIAL 1 MG IM (12:09)
[2021-06-11 15:29] VITALS: BP 106/67; PULSE 67; RESP 16; TEMP 36.1; O2SAT 98
--- NOTE | 2021-06-11 15:32 | PTTR_ITS ---
PT Notes Visit Reasons: Dementia with behavioral abnormalities 06/11/2021 SUBJECTIVE: Pt stating he feels fidgety and would like to get up and move. He is agreeable to PT treatment. OBJECTIVE: TRANSFERS Sit to stand: S Stand to sit: S GAIT Device: No AD Weight bearing: Full Assist: S Distance: 150'x2 Deviation: Slow mando, short stride length, pill rolling R hand THEREX: Pt performs nustep today x 5 minutes with good tolerance followed by UE strengthening using resistance band. See flow sheet for details. ASSESSMENT: Pt able to follow single one step commands and perform productive UE strengthening with use of cues and demonstration. PLAN: Continue with current POC. Treatment time: 25 minutes([id number]) Estrella Rhodes PTA Clinic location: [facility] [place], [place]
--- NOTE | 2021-06-11 15:46 | W.PM.PROGNOT ---
Date of Service Date of service: 06/11/21 Time of Service: 11:15 Assessment and Plan Assessment and plan (1) Dementia associated with other underlying disease with behavioral disturbance: Start date: 06/11/21 Start time: 11:15 Status: Acute Assessment and plan: On seroquel and mirtazpem for behavior and dementia, Some behavioral issues today requiring a dose of ativan Continue PT He needs continuos cuing. CM to refer to Agustina Continue to monitor behaviour, did require extra dose of seroquel EKG with NSR, no ectopic beats (2) Insomnia: Start date: 06/11/21 Start time: 11:15 Status: Chronic Assessment and plan: Continue Remeron low-dose with Seroquel possibly help with this problem as well. Scheduled at 1700 as well to help with sleep Qualifiers: Insomnia type: due to medical condition Qualified Code(s): G47.01 - Insomnia due to medical condition (3) Confusion: Start date: 06/11/21 Start time: 11:15 Status: Chronic Assessment and plan: with severe dementia oriented only to self (4) DVT prophylaxis: Start date: 06/11/21 Start time: 11:15 Status: Acute Assessment and plan: Heparin subcu (5) Discharge planning issues: Start date: 06/11/21 Start time: :15 Status: Acute Assessment and plan: Cm to refer to Agustina. discussed with Dr. Lei Subjective Subjective Patient reports: other Interval history since last seen: Patient was agitated and refused to take seroquel dosing, he wanted to ambulate not cooperative with staff prior to lunch, He required a dose of ativan due agitation and being uncooperative. After the ativan he was calm and cooperative. Exam Narrative Exam Narrative: General: Patient is lean, normal development and in no acute distress. He is alert and oriented to possibly person. HEENT: Normocephalic, eyes with pupils equal and reactive to light symmetrically, extraocular movement intact and sclera anicteric. Neck: Supple without JVD. Back: Normal posture without CVA tenderness. Lungs: Clear to auscultation and percussion. Heart: Irregular rhythm with normal rate. No murmurs or gallops appreciated. Abdomen: Normal contour, soft and nontender to palpation with no palpable hepatosplenomegaly. Extremities: Without clubbing, cyanosis or pitting edema. Peripheral pulses intact. Skin: Normal color, warm and dry. Neuro: Cranial nerves II through XII are grossly intact, no focalizing motor deficits. No tremor. Psych: Flattened affect with normal mood at the time of my exam. No abnormal thought processes at the time of my exam. Remote and recent memory not intact with patient confused without being able to offer any history. Objective Last Vital Signs Temp 36.1 C L 06/11/21 15:29 Pulse 67 06/11/21 15:29 Resp 16 06/11/21 15:29 BP 106/67 06/11/21 15:29 Pulse Ox 98 06/11/21 15:29
[2021-06-11] MEDS: Mirtazapine 15 MG TAB 7.5 MG PO (16:51)
[2021-06-11] MEDS: Docusate Sodium 100 MG CAP PO (19:43)
[2021-06-12 00:56] VITALS: BP 133/84; PULSE 65; RESP 18; TEMP 36; O2SAT 99
[2021-06-12] MEDS: Heparin 5,000 UNITS/ML VIAL 5000 UNITS SC (06:46)
[2021-06-12] MEDS: QUEtiapine 25 MG TAB PO ×3 (07:42→13:23)
[2021-06-12 08:11] VITALS: BP 126/72; PULSE 88; RESP 19; TEMP 36.2; O2SAT 98
--- NOTE | 2021-06-12 08:34 | PT.INTREAT ---
PT Notes Visit Reasons: Dementia with behavioral abnormalities 06/12/2021 SUBJECTIVE: Rajendra stating something weird is going on today. He is agreeable to PT treatment this morning. He notes feeling a little stiff. OBJECTIVE: TRANSFERS Sit to stand: S Stand to sit: S GAIT Device: None Weight bearing: Full Assist: SBA Distance: 150'+500' Deviation: No LOB STAIRS: Up and down 2-6, 3-4 steps, 2 rails, SBA THEREX: Nustep x 5' followed by light LE strengthening in standing position and balance activities. See flow sheet. ASSESSMENT: Pt requires constant cueing for exercises throughout. His gait improves with distance and is able to increase mando and stride length. Tolerates PT well today. PLAN: Continue 1x per day for balance, strengthening and gait training. Direct time: 30 minutes [id number], [id number] Estrella Rhodes PTA Clinic location: [facility] [place], [place]
[2021-06-12 08:47] LABS: Abs Immature Grans 0.03 10^3/uL (0.0-0.06); Absolute Basophil Count 0.03 10^3/uL (0.0-0.2); Absolute Eosinophil Count 0.11 10^3/uL (0.0-0.7); Absolute Lymphocyte Count 0.96 10^3/uL (1.2-3.4); Absolute Monocyte Count 0.24 10^3/uL (0.1-0.8); Absolute Neutrophil Count 2.99 10^3/uL (1.2-6.7); Basophils % 0.7; Eosinophils % 2.5; HCT 40.3 % (40.0-50.0); Immature Grans % 0.7; MCHC 34.7 % (32.0-36.0); MPV 9.2 fL (8.0-11.0); Monocytes % 5.5; Neutrophils % 68.6; Nucleated RBC 0 %; Platelet Count 229 10^3/uL (130-400); RBC 4.38 10^6/uL (4.36-5.78); RDW 12.6 % (11.8-14.1); RDW-SD 42.8 fL; WBC 4.36 10^3/uL (4.4-10.8)
--- NOTE | 2021-06-12 09:13 | PDOC.CMPRO ---
- If Service Date Differs Date of service: 06/12/21 Time of Service: 09:13 Care Management Progress Note S/O: Rajendra was walking in his room when CM met with him. He was pleasant and made a joke about his reading glasses, while putting them on. Rajendra said that he was doing good, and then sat down in his chair and started looking through a magazine. He visited with his Olga today. Olga shared that she filed paperwork with the court for Emergency Temporary Guardianship in hopes that Rajendra can go to the [facility] for management of his behavioral abnormalities which are unmanageable at home. A: 75 year old male admitted to [facility] on 06/08/2021 for Dementia with behavioral abnormalities. P: Unclear of disposition at this time. Olga is in the process of filling out paperwork for Emergency Temporary Guardianship due to changes in his behavioral status. Per [facility] they prefer to have an appointed guardian prior to new patient admissions to support safe discharges. CM will connect with [facility] after paperwork is complete. CM will continue to support. DL
[2021-06-12] MEDS: Mirtazapine 15 MG TAB 7.5 MG PO (16:23)
[2021-06-12 16:28] VITALS: BP 104/69; PULSE 85; RESP 16; TEMP 36.8; O2SAT 98
--- NOTE | 2021-06-12 16:43 | W.PM.PROGNOT ---
Date of Service Date of service: 06/12/21 Time of Service: 16:43 Assessment and Plan Assessment and plan (1) Dementia associated with other underlying disease with behavioral disturbance: Start date: 06/12/21 Start time: 16:45 Status: Acute Assessment and plan: On seroquel and mirtazpem for behavior and dementia, Some behavioral issues today requiring higher am dosing with mid morning dosing due to agitation around 1030/11. Will trial, if this is not effective suggest neuro or psych Continue PT He needs continuos cuing. CM to refer to [facility] Continue to monitor behaviour, did require extra dose of seroquel EKG with NSR, no ectopic beats (2) Insomnia: Start date: 06/12/21 Start time: 16:49 Status: Chronic Assessment and plan: Continue Remeron low-dose with Seroquel possibly help with this problem as well. Scheduled at 1700 as well to help with sleep Qualifiers: Insomnia type: due to medical condition Qualified Code(s): G47.01 - Insomnia due to medical condition (3) Confusion: Start date: 06/12/21 Start time: 16:49 Status: Chronic Assessment and plan: with severe dementia oriented only to self (4) DVT prophylaxis: Start date: 06/12/21 Start time: 16:49 Status: Acute Assessment and plan: Heparin subcu (5) Discharge planning issues: Start date: 06/12/21 Start time: 16:49 Status: Acute Assessment and plan: Cm to refer to Agustina along with other areas discussed with Dr. Lei Subjective Subjective Patient reports: other Interval history since last seen: Agitated and behavioral around 1030. Up am seroquel to 50 mg. Will add 1030 dosing as this tends to be the time he gets agitated. Palliative consult placed. Consider psych or neuro if he gets worse. Awaiting placement. Exam Narrative Exam Narrative: General: Patient is lean, normal development and in no acute distress. He is alert and oriented to possibly person. HEENT: Normocephalic, eyes with pupils equal and reactive to light symmetrically, extraocular movement intact and sclera anicteric. Neck: Supple without JVD. Back: Normal posture without CVA tenderness. Lungs: Clear to auscultation and percussion. Heart: Irregular rhythm with normal rate. No murmurs or gallops appreciated. Abdomen: Normal contour, soft and nontender to palpation with no palpable hepatosplenomegaly. Extremities: Without clubbing, cyanosis or pitting edema. Peripheral pulses intact. Skin: Normal color, warm and dry. Neuro: Cranial nerves II through XII are grossly intact, no focalizing motor deficits. No tremor. Psych: Flattened affect with normal mood at the time of my exam. No abnormal thought processes at the time of my exam. Remote and recent memory not intact with patient confused without being able to offer any history. Objective Last Vital Signs Temp 36.8 C 06/12/21 16:28 Pulse 85 06/12/21 16:28 Resp 16 06/12/21 16:28 BP 104/69 06/12/21 16:28 Pulse Ox 98 06/12/21 16:28 Laboratory Results - last 24 hr 06/12/21 08:35 WBC 4.36 L RBC 4.38 Hgb 14.0 Hct 40.3 MCV 92.0 MCH 32.0 MCHC 34.7 RDW 12.6 Plt Count 229 MPV 9.2 Immature Gran % 0.7 Neutrophils % 68.6 Lymphocytes % 22.0 Monocytes % 5.5 Eosinophils % 2.5 Basophils % 0.7 Nucleated RBC % 0 Absolute Neutrophils 2.99 Absolute Lymphocytes 0.96 L Absolute Monocytes 0.24 Absolute Eosinophils 0.11 Absolute Basophils 0.03
[2021-06-13 01:07] VITALS: BP 106/66; PULSE 64; RESP 17; TEMP 36.8; O2SAT 97
[2021-06-13] MEDS: Heparin 5,000 UNITS/ML VIAL 5000 UNITS SC ×2 (05:41→21:15)
[2021-06-13] MEDS: QUEtiapine 25 MG TAB 50 MG PO (07:45)
--- NOTE | 2021-06-13 09:25 | CMPROGNOTE_ITS ---
- If Service Date Differs Date of service: 06/13/21 Time of Service: 09:25 Care Management Progress Note S/O: Rajendra was laying in bed watching TV and visiting with his when CM met with him. Olga learned that Temporary Emergency Guardianship was granted and provided CM with a copy. Olga is hopeful that Rajendra will be able to transfer to [facility] on Wednesday. A: 75 year old male admitted to [facility] on 06/08/2021 for Dementia with behavioral abnormalities. P: Olga was granted Emergency Temporary Guardianship by the court due to changes in his behavioral status. Per Dorina at [facility] they will need to revisit the admission request on Wednesday due to their census. CM faxed a copy of the guardianship paperwork and will follow up with the [facility] on Wednesday. CM will continue to support. DL
--- NOTE | 2021-06-13 09:43 | PT.INTREAT ---
PT Notes Visit Reasons: Dementia with behavioral abnormalities Inpatient Physical Therapy Treatment Note [facility] Date: 06/13/21 PRECAUTIONS:Fall Risk OBJECTIVE: Sit-stand: SBA Stand-sit: SBA GAIT Assistive Device: No assistive device Weight bearing: Full Assist: SBA with vc's Distance: [id number] THEREx: Pt completed the Nu Step as per flow sheet, LE strengthening ther ex in the // bars as per flow sheet, and tandem stance 30 sec with CGA. ASSESSMENT: Pt tolerated today's session well. Pt required guidance with directions. PLAN:Cont as per PT POC. TREATMENT CODE/TIME: 9:15-9:40 (25) MAX WATERS
[2021-06-13] MEDS: QUEtiapine 25 MG TAB PO ×3 (10:12→14:28)
--- NOTE | 2021-06-13 16:15 | W.PM.PROGNOT ---
Date of Service Date of service: 06/13/21 Time of Service: 16:15 Assessment and Plan Assessment and plan (1) Dementia associated with other underlying disease with behavioral disturbance: Status: Acute Assessment and plan: On seroquel and mirtazpem for behavior and dementia, Some behavioral issues today requiring higher am dosing with mid morning dosing due to agitation around 1030/11. Will trial, if this is not effective suggest neuro or psych Continue PT He needs continuos cuing. CM to refer to Agustina Continue to monitor behaviour, did require extra dose of seroquel EKG with NSR, no ectopic beats (2) Insomnia: Status: Chronic Assessment and plan: Continue Remeron low-dose with Seroquel possibly help with this problem as well. Scheduled at 1700 as well to help with sleep Qualifiers: Insomnia type: due to medical condition Qualified Code(s): G47.01 - Insomnia due to medical condition (3) Confusion: Status: Chronic Assessment and plan: with severe dementia oriented only to self (4) DVT prophylaxis: Status: Acute Assessment and plan: Heparin subcu (5) Discharge planning issues: Status: Acute Assessment and plan: Cm to refer to Agustina along with other areas discussed with Dr. Lei Subjective Subjective Patient reports: no new complaints Interval history since last seen: no behavioral issues ambulating in [place] with staff eating and drinking well medically stable. Exam Narrative Exam Narrative: General: thin elderly male, younger appearing than stated age in no acute distress. He is alert and confused. unable to provide history. HEENT: Normocephalic sclera anicteric. Neck: no JVD. Back: Normal posture Lungs: respirations even and unlabored Heart: Irregular rhythm with normal rate. Abdomen: Normal contour, soft, no masses Extremities: moves all extremities, no edema Skin: Normal color, warm and dry. no rashes or lesions Neuro: alert, demented. Psych: Flattened affect Objective Last Vital Signs Temp 36.8 C 06/13/21 01:07 Pulse 64 06/13/21 01:07 Resp 17 06/13/21 01:07 BP 106/66 06/13/21 01:07 Pulse Ox 97 06/13/21 01:07 Laboratory Results - last 24 hr 06/13/21 05:35 WBC Cancelled RBC Cancelled Hgb Cancelled Hct Cancelled MCV Cancelled MCH Cancelled MCHC Cancelled RDW Cancelled Plt Count Cancelled MPV Cancelled
[2021-06-13] MEDS: Mirtazapine 15 MG TAB 7.5 MG PO (16:47)
[2021-06-13 23:55] VITALS: BP 112/63; PULSE 64; RESP 16; TEMP 36.6; O2SAT 97
[2021-06-14] MEDS: Acetaminophen 325 MG TAB 650 MG PO ×2 (02:46→08:15)
[2021-06-14] MEDS: Mylanta Suspension 30 ML CUP PO ×2 (02:46→08:14)
[2021-06-14 03:18] VITALS: BP 129/70; PULSE 65; O2SAT 98
[2021-06-14 07:38] VITALS: BP 105/75; PULSE 73; RESP 15; TEMP 36.7; O2SAT 99
[2021-06-14 07:41] LABS: HCT 42.8 % (40.0-50.0); HGB 14.5 g/dL (13.5-17.5); MCH 31.5 pg (27.0-33.0); MCHC 33.9 % (32.0-36.0); MPV 9.4 fL (8.0-11.0); Platelet Count 274 10^3/uL (130-400); RDW-SD 44.6 fL; WBC 4.63 10^3/uL (4.4-10.8)
[2021-06-14] MEDS: QUEtiapine 25 MG TAB 50 MG PO (07:53)
--- NOTE | 2021-06-14 08:00 | RT.EKG_ITS ---
APPROVED REPORT Exam: Resting ECG Reason for Exam: chest discomfort, heart racing Patient Location: I HR:131 bpm ECG Measurements Heart Rate 131 AXIS LA [id number] P [id number] QRSd 86 QRS 79 QT 372 T 63 QTc 550 Conclusion Atrial fibrillation...? atrial activity Ventricular tachycardia, unsustained...sequence of 3 or more V complexes Anteroseptal infarct, age indeterminate...Q >35mS, T neg, V1-V2
[2021-06-14 08:02] VITALS: BP 113/77; PULSE 76; RESP 18; TEMP 35.9; O2SAT 99
[2021-06-14] MEDS: QUEtiapine 25 MG TAB PO ×2 (10:11→12:53)
--- NOTE | 2021-06-14 10:21 | W.PM.PROGNOT ---
Date of Service Date of service: 06/14/21 Time of Service: Assessment and Plan Assessment and plan (1) Dementia associated with other underlying disease with behavioral disturbance: Status: Acute Assessment and plan: On seroquel and mirtazpem for behavior and dementia, Some behavioral issues today requiring higher am dosing with mid morning dosing due to agitation around 1030/11. Will trial, if this is not effective suggest neuro or psych Continue PT He needs continuos cuing. CM to refer to [facility] Continue to monitor behaviour, did require extra dose of seroquel EKG with NSR, no ectopic beats (2) Insomnia: Status: Chronic Assessment and plan: Continue Remeron low-dose with Seroquel possibly help with this problem as well. Scheduled at 1700 as well to help with sleep Qualifiers: Insomnia type: due to medical condition Qualified Code(s): G47.01 - Insomnia due to medical condition (3) Confusion: Status: Chronic Assessment and plan: with severe dementia oriented only to self (4) DVT prophylaxis: Status: Acute Assessment and plan: Heparin subcu (5) Discharge planning issues: Status: Acute Assessment and plan: Cm to refer to [facility] along with other areas discussed with Dr. Valentin Subjective Subjective Patient reports: no new complaints, tolerating liquids well, tolerating a regular diet, voiding w/o difficulty and afebrile Interval history since last seen: no behavioral issues ambulating in [place] with staff eating and drinking well medically stable. Exam Narrative Exam Narrative: General: thin elderly male, younger appearing than stated age in no acute distress. He is alert and confused. unable to provide history. HEENT: Normocephalic sclera anicteric. Neck: no JVD. Back: Normal posture Lungs: respirations even and unlabored Heart: Irregular rhythm with normal rate. Abdomen: Normal contour, soft, no masses Extremities: moves all extremities, no edema Skin: Normal color, warm and dry. no rashes or lesions Neuro: alert, demented. Psych: Flattened affect Objective Last Vital Signs Temp 35.9 C L 06/14/21 08:02 Pulse 76 06/14/21 08:02 Resp 18 06/14/21 08:02 BP 113/77 06/14/21 08:02 Pulse Ox 99 06/14/21 08:02 Laboratory Results - last 24 hr 06/14/21 06:52 WBC 4.63 RBC 4.60 Hgb 14.5 Hct 42.8 MCV 93.0 MCH 31.5 MCHC 33.9 RDW 13.0 Plt Count 274 MPV 9.4
[2021-06-14 10:23] LABS: Troponin I < 0.05 ng/mL (<0.06)
--- NOTE | 2021-06-14 10:56 | PT.INTREAT ---
PT Notes Visit Reasons: Dementia with behavioral abnormalities Inpatient Physical Therapy Treatment Note [facility] Date: 06/14/21 PRECAUTIONS:fall Sit-stand: SBA/CGA Stand-sit: SBA/CGA GAIT Assistive Device: No assist device Weight bearing: full Assist: CGA Distance: approx [id number] THEREX: Pt completed LE strengthening ther ex as per flow sheet in the // bars as well as the Nu Step for 6 min at L9. STAIRS:[] ASSESSMENT: Pt tolerated today's session well. PLAN: Cont as per PT POC. TREATMENT CODE/TIME: 9:15-9:40 (25) MAX WATERS
[2021-06-14 11:42] VITALS: BP 110/77; PULSE 91; RESP 20; TEMP 35.7; O2SAT 98
[2021-06-14] MEDS: Mirtazapine 15 MG TAB 7.5 MG PO (17:05)
[2021-06-14] MEDS: Pantoprazole 40 MG TABCR PO (17:50)
[2021-06-15 01:04] VITALS: BP 116/74; PULSE 74; RESP 17; TEMP 36.3; O2SAT 99
[2021-06-15 06:58] VITALS: BP 112/75; PULSE 60; RESP 16; TEMP 37.2; O2SAT 94
[2021-06-15] MEDS: Pantoprazole 40 MG TABCR PO (09:16)
[2021-06-15] MEDS: QUEtiapine 25 MG TAB 50 MG PO (09:16)
[2021-06-15] MEDS: QUEtiapine 25 MG TAB PO ×4 (10:48→23:54)
--- NOTE | 2021-06-15 10:56 | PT.INTREAT ---
PT Notes Visit Reasons: Dementia with behavioral abnormalities Inpatient Physical Therapy Treatment Note [facility] Date: 06/15/21 OBJECTIVE: Sit-stand: SBA Stand-siSBA GAIT Assistive Device: No assist device Weight bearing: Full Assist: SBA with vc's on directions Distance: 728nio5 THEREX: Pt completed UE and LE strengthening ther ex as per flow sheet. Pt completed the Nu Step for 7 min at L9. ASSESSMENT: Pt was more confused today. PLAN: Cont as per PT POC. TREATMENT CODE/TIME: 8:45-9:05 (20) TA
--- NOTE | 2021-06-15 11:47 | W.PM.PROGNOT ---
Date of Service Date of service: 06/15/21 Time of Service: 11:48 Assessment and Plan Assessment and plan (1) Dementia associated with other underlying disease with behavioral disturbance: Status: Acute Assessment and plan: On seroquel and mirtazpem for behavior and dementia, Some behavioral issues today requiring higher am dosing with mid morning dosing due to agitation around 1030/11. Will trial, if this is not effective suggest neuro or psych Continue PT He needs continuos cuing. CM to refer to [facility] Continue to monitor behaviour, did require extra dose of seroquel EKG with NSR, no ectopic beats (2) Insomnia: Status: Chronic Assessment and plan: Continue Remeron low-dose with Seroquel possibly help with this problem as well. Scheduled at 1700 as well to help with sleep Qualifiers: Insomnia type: due to medical condition Qualified Code(s): G47.01 - Insomnia due to medical condition (3) Confusion: Status: Chronic Assessment and plan: with severe dementia oriented only to self (4) DVT prophylaxis: Status: Acute Assessment and plan: Heparin subcu (5) Discharge planning issues: Status: Acute Assessment and plan: Cm to refer to [facility] along with other areas discussed with Dr. Valentin Subjective Subjective Patient reports: no new complaints Interval history since last seen: no behavioral issues ambulating in [place] with staff eating and drinking well medically stable. Exam Narrative Exam Narrative: General: thin elderly male, younger appearing than stated age in no acute distress. He is alert and confused. unable to provide history. HEENT: Normocephalic sclera anicteric. Neck: no JVD. Back: Normal posture Lungs: respirations even and unlabored Heart: Irregular rhythm with normal rate. Abdomen: Normal contour, soft, no masses Extremities: moves all extremities, no edema Skin: Normal color, warm and dry. no rashes or lesions Neuro: alert, demented. Psych: Flattened affect Objective Last Vital Signs Temp 37.2 C 06/15/21 06:58 Pulse 60 06/15/21 06:58 Resp 16 06/15/21 06:58 BP 112/75 06/15/21 06:58 Pulse Ox 94 06/15/21 06:58
[2021-06-15 15:46] VITALS: BP 108/68; PULSE 83; RESP 17; TEMP 36.8; O2SAT 97
[2021-06-15] MEDS: Mirtazapine 15 MG TAB 7.5 MG PO (17:26)
[2021-06-15] MEDS: Acetaminophen 325 MG TAB 650 MG PO (23:53)
[2021-06-15 23:54] VITALS: BP 119/78; PULSE 68; RESP 18; TEMP 36.3; O2SAT 98
[2021-06-16 06:47] LABS: HCT 39.7 % (40.0-50.0); HGB 13.3 g/dL (13.5-17.5); MCH 32.3 pg (27.0-33.0); MCHC 33.5 % (32.0-36.0); MCV 96.4 fL (80-95); MPV 8.9 fL (8.0-11.0); Platelet Count 210 10^3/uL (130-400); RBC 4.12 10^6/uL (4.36-5.78); RDW 12.9 % (11.8-14.1); RDW-SD 45.1 fL; WBC 4.73 10^3/uL (4.4-10.8)
--- NOTE | 2021-06-16 08:21 | PDOC.CMPRO ---
- If Service Date Differs Date of service: 06/16/21 Time of Service: 08:21 Care Management Progress Note S/O: A: P:
[2021-06-16] MEDS: Pantoprazole 40 MG TABCR PO (08:30)
[2021-06-16] MEDS: QUEtiapine 25 MG TAB 50 MG PO (08:30)
[2021-06-16 09:12] VITALS: BP 134/63; PULSE 88; RESP 17; TEMP 36.9; O2SAT 95
[2021-06-16 10:54] LABS: Source Nasal/Nares
[2021-06-16] MEDS: QUEtiapine 25 MG TAB PO (11:18)
[2021-06-16 11:46] LABS: COVID-19 PCR Negative (Negative)
--- NOTE | 2021-06-16 12:42 | W.PM.DS.N ---
Date of service: 06/16/21 Time of Service: 12:42 DS: Diagnosis Discharge Diagnosis (1) Dementia associated with other underlying disease with behavioral disturbance: Start date: 06/16/21 Start time: 12:43 Status: Acute Asessment and Plan: Patient brought to hospital by because she was unable to handle him at home. On seroquel and mirtazpem for behavior and dementia, with dosing TID around 1030/11. He has been accepted at [facility] He needs continuos cuing. Therefore he is being discharged to [facility] (2) Insomnia: Start date: 06/16/21 Start time: 12:54 Status: Chronic Asessment and Plan: Mirtazpem for sleep. This appears to be effective (3) Confusion: Start date: 06/16/21 Start time: 12:54 Status: Chronic Asessment and Plan: Due to severe dementia discussed with Dr. Valentin Discharge Plan Disposition Patient Disposition: OTHER Condition: Stable Discharge Details Reason For Visit: Dementia with behavioral abnormalities Admit Date/Time: 06/08/21 16:49 Admit Provider: Omari Rose Attending Provider: Omari Rose Primary Care Provider: Mariangel Tubbs Hospital Course Hospital Course: 75 y.o male with PMH of dementia, confusion, brought in by his after being belligerent and violent towards her. He was placed on seroquel and mirtazepam. He had some episodes of outbursts and not listening to staff, causing behavioral issues, he did need ativan at least one time for behavior. Once seroquel was increased his behavior improved. He was sleeping better with mirtazepam. He is oriented only to self. He has been accepted to [facility]. Will defer to them for further management of medication and treatment. Home Meds and New Rx's Prescriptions: Continued mirtazapine [Remeron] 15 mg Tablet 15 mg PO TID RF: 0 Discontinued quetiapine [Seroquel] 25 mg Tablet 12.5 mg PO DAILY RF: 0 Discharge Instructions Additional Instructions: Transfer to [facility] Activity:: Activity as Tolerated Equipment/Supplies:: No Equipment Needed Diet:: As Tolerated Discharge Orders Discharge Orders: Discharge Order (Routine); Ordered 06/16/21 Ordered By: Lucia Henderson DS: Summary Time Spent with Patient providing and/or coordinating discharge services: Less than 30 minutes Status at Discharge Functional status at discharge: independent ambulation Overall status at discharge: patient is not back to baseline Mental Status: other Speech and Movement: speech and movement normal Mood: other Affect: other Exam Narrative Exam Narrative: General: Patient is lean, normal development and in no acute distress. He is alert and oriented to possibly person. HEENT: Normocephalic, eyes with pupils equal and reactive to light symmetrically, extraocular movement intact and sclera anicteric. Neck: Supple without JVD. Back: Normal posture without CVA tenderness. Lungs: Clear to auscultation and percussion. Heart: Irregular rhythm with normal rate. No murmurs or gallops appreciated. Abdomen: Normal contour, soft and nontender to palpation with no palpable hepatosplenomegaly. Extremities: Without clubbing, cyanosis or pitting edema. Peripheral pulses intact. Skin: Normal color, warm and dry. Neuro: Cranial nerves II through XII are grossly intact, no focalizing motor deficits. No tremor. Psych: Flattened affect with normal mood at the time of my exam. No abnormal thought processes at the time of my exam. Remote and recent memory not intact with patient confused without being able to offer any history. Psych Mental Status: other Speech and Movement: speech and movement normal Mood: other Affect: other DS: Data Vitals/I&O Vitals and I&O: Vital Signs Temperature 36.9 C 06/16/21 09:12 Temperature Source Temporal Artery Scan 06/16/21 09:12 Pulse 88 06/16/21 09:12 Pulse Rhythm Regular 06/16/21 07:45 Respiratory Rate 17 06/16/21 09:12 Respiratory Effort Non-Labored 06/16/21 07:45 Respiratory Depth Normal 06/16/21 07:45 Respiratory Pattern Normal 06/16/21 07:45 Blood Pressure 134/63 06/16/21 09:12 Blood Pressure Position Sitting 06/06/21 21:22 Pulse Oximetry 95 06/16/21 09:12 Oxygen Delivery Method Room Air 06/16/21 09:12 Oxygen Flow Rate 0 06/16/21 09:12 Pain Level 0 06/16/21 09:12 Comment 06/14/21 15:10 Intake & Output 06/15/21 06/16/21 06/16/21 23:59 11:59 23:59 Intake Total 480 / 970 Balance 480 / 970 Weight 68.4 kg Intake: Oral 480 / 970 Other: Urine Color Pale Pale Yellow Urine Appearance Clear Clear Comment amount not measured Voiding Methods Toilet Toilet Data Completed and Pending Completed studies during hospitalization [Text1]: : 4Age: 75 Exam(s) a CT:CT brain & neck CTA Exam(s) CT BRAIN NECK CTA EXAM: CT BRAIN NECK CTA CLINICAL HISTORY: confusion, expressive aphasia. TECHNIQUE: Imaging Protocol: Axial CT angiography was performed with multi-slice acquisition and multi-planar and/or 3D reconstructions. CONTRAST MATERIAL: Intravenous: Omnipaque 350 Contrast volume:85 ml COMPARISON: CR,XR XR CHEST 2V PA LATERAL from 06/02/2021 CR,XR XR CHEST 2V PA LATERAL from 06/02/2021 FINDINGS: CT Head W/O and W contrast: Ventricles and Extra axial spaces: Normal in size and morphology for the patient's age. Hemorrhage: None. Cerebral parenchyma: Normal. Midline shift: None. Brainstem/Cerebellum: Normal. Calvarium: Normal. Visualized Paranasal sinuses/Mastoids: Clear. Soft Tissues: Unremarkable. Enhancement: Normal. CTA Brain W: Internal Carotid Arteries: Petrous: Normal. Cavernous: Normal. Cerebral: Normal. Middle Cerebral Arteries: Right: No aneurysm, occlusion or significant stenosis. Left: No aneurysm, occlusion or significant stenosis. Anterior Cerebral Arteries: Right: No aneurysm, occlusion or significant stenosis. Left: No aneurysm, occlusion or significant stenosis. Posterior cerebral Arteries: Right: No aneurysm, occlusion or significant stenosis. Left: No aneurysm, occlusion or significant stenosis. Vertebral Arteries: Right: No aneurysm, occlusion or significant stenosis. Left: No aneurysm, occlusion or significant stenosis. Basilar Artery: No aneurysm, occlusion or significant stenosis. Labs on day of discharge: Labs from last 24 hours 06/16/21 06/16/21 10:43 06:35 WBC 4.73 RBC 4.12 L Hgb 13.3 L Hct 39.7 L MCV 96.4 H MCH 32.3 MCHC 33.5 RDW 12.9 Plt Count 210 MPV 8.9 COVID-19 Source Nasal/Nares SARS-CoV-2 (PCR) Negative [facility] Medical History Dementia associated with other underlying disease with behavioral disturbance Insomnia Social History Smoking/Tobacco Use Status: Former Tobacco Use Smoking risk assessment performed?: Yes Alcohol Intake: former Drug use: Never Do you feel safe at home: Yes Do you feel safe in your relationship?: Yes
--- NOTE | 2021-06-16 12:57 | PTTR_ITS ---
Date of service: 06/16/21 Time of Service: 08:40 PT Notes Visit Reasons: Dementia with behavioral abnormalities Inpatient Physical Therapy Treatment Note [facility] Date: 06/16/2021 PRECAUTIONS: Dementia SUBJECTIVE: Rajendra is pleasant and agreeable to participating in PT. After PT session, he thanks me stating thank you for helping me to stay strong. OBJECTIVE: PAIN: No c/o pain BED MOBILITY/TRANSFERS Sit-stand: I Stand-sit: I GAIT Assistive Device: No AD Weight bearing: Full Assist: SBA Distance: 300' THEREX: Patient was instructed in a standing UE and LE strengthening program, as per flow sheet. He requires CGA-SBA for safety with standing exercises. ASSESSMENT: Patient tolerated session well without complaint. He was able to tolerate a progression in his ther ex program, tolerating standing exercises. PLAN: Discharge to [facility] later today, per provider. TREATMENT CODE/TIME: 20 minutes; 51175 (08:40)
--- NOTE | 2021-06-16 14:26 | PDOC.CMDIS ---
- If Service Date Differs Date of service: 06/16/21 Time of Service: 14:26 LACE Index Scoring Tool - Questions: Length of Stay (in days): 7 - 13 Acuity (Admit via E.D.?): Yes Comorbidities: Cerebrovascular Disease E.D. Visits: 2 - Answers: Total Score: 11 Risk of Readmission: High Risk Care Management Discharge Reason for Hospitalization: Dementia with behavioral abnormalities Discharge Plan: Transfer to the [facility] via EMT for short term medication management related to dementia and behavorial abnormalties. Patient/Family Education Needs: Review of discharge instructions, ask me three Services Needed at Discharge: Psychiatric Facility, Transportation
--- NOTE | 2021-06-16 14:32 | NUR.NOTE ---
Nursing Note: patient discharged via stretcher with ambulance team to [facility] and report was called to [facility] [phone]
--- NOTE | 2021-06-18 09:19 | PT.INDS ---
Date of service: 06/18/21 Time of Service: 09:19 PT Notes Visit Reasons: Dementia with behavioral abnormalities Physical Therapy Inpatient Discharge Summary Date: 06/18/2021 Dates of Service: 06/07/2021 through 06/16/2021 This is a clinical summary of care provided for the duration of dates listed above. No charge was made in the completion of this documentation. Referring Doctor: Lucia Henderson PT Orders: PT CONSULT: Limited Ability Precautions: Standard, fall risk Patient Profile/Admitting Diagnosis: Patient is a 75-year-old male referred for evaluation secondary to limited ability due to dementia with behavioral abnormalities. He was apparently admitted a few days ago and was signed out AMA by his . Was recently put on Seroquel but had missed a dose and became violent towards his . She brought him back to [facility] as she was unable to care for him and feared for her safety. PMHX: Medical History (Updated 06/07/21 @ 09:51 by Omari Rose) Dementia associated with other underlying disease with behavioral disturbance Insomnia Social History/Home Situation: Prior to admission at [facility] patient resides with in a multilevel home. Unable to acquire any significant history due to patient's dementia. Equipment Owned/DME: Unknown Subjective: NT. See most recent [employer]PER[employer] notes. Objective: General Observation: NT. See most recent [employer] notes. Mental Status: NT. See most recent [employer] notes. Pain: NT. See most recent [employer] notes. ROM: Right Upper Extremity: Within functional limits Left Upper Extremity: Within functional limits Right Lower Extremity: Within functional limits Left Lower Extremity: Within functional limits Strength: Right Upper Extremity: Grossly 4/5 glenohumeral joint abduction, flexion, bicep tricep. Fair item processor. Left Upper Extremity: Grossly 4/5 glenohumeral abduction, flexion, bicep and tricep. Fair item processor. Right Lower Extremity: 4/5 quads, 4 -/5 hamstrings and hip flexion. Left Lower Extremity: 4/5 quads, 4 -/5 hamstrings and hip flexion. Bed Mobility/Transfers: Bed mobility: Independent Supine to sit: Independent Sit to stand: Independent Stand to sit: Independent Gait: No AD up to 300 feet with stand by assist. Balance: Static Sitting: Normal Dynamic Sitting: Normal Static Standing: Good Dynamic Standing: Good. Assessment: Has reached stand by assist with all mobility ADL performance due to impaired safety awareness. Patient continues to present with clinical signs and symptoms consistent with current/admitting diagnoses that have resulted in mobility limitations, gait instability, generalized weakness, and impairment of motor control as demonstrated by the following impairment level findings: 1. Impulsivity 2. Impaired safety awareness Impairments are continuing to contribute to the following functional limitations: 1. Inability to safely ambulate independently due to poor safety awareness 2. Increase completion time for mobility ADL performance 3. Increased fall risk Goals: Goals X1 week 1. Supine-Sit: Supervision MET 2. Sit-Supine: Supervision MET 3. Sit-Stand: Supervision MET 4. Stand-Sit : Supervision MET 5. Bed-Chair: Supervision MET 6. Chair-Bed: Supervision MET 7. Gait : Community distances greater than 200 feet with supervision MET 8. Stairs: Full flight up and down with use of railing and supervision NOT MET 9. Independent with home exercise program NOT MET 10. Balance: Patient able to sit independently bedside MET DISCHARGE RECOMMENDATIONS: To [facility] on 06/16/2021. TREATMENT CODE/TIME: FL Thank you for the opportunity to participate in the care of this patient. Cate Gonzales PT, DPT, CLT [facility] [place], [place]
== END 2021-06-16 14:18 | disposition other institution (70) | DRG 884 ==
LOC: ER 23:07 → MS 23:49
PROVIDERS: Family Medicine; Internal Medicine; Nurse Practitioner Family; Admitting Provider Family Medicine; Emergency Provider Physician Assistant; PCP Internal Medicine Geriatric Medicine; Visit Provider Family Medicine
DX: F03.91 Unspecified dementia, unspecified severity, with behavioral disturbance (principal); Z66 Do not resuscitate; Z87.891 Personal history of nicotine dependence; G47.01 Insomnia due to medical condition; Z20.822 Contact with and (suspected) exposure to COVID-19
CPT/HCPCS: 36415; 80048; 80053; 80307; 85027; 87635; 97110; 97162; 97164; 97530; 99285; 80320; 81003; 81015; 83735; 84439; 84443; 84484; 85025; 87086; 93005; 93010; 99219; 99231; 99232; 99233; 99238; G0378; J1644; J2060

== ENCOUNTER 2021-08-13 16:36 | Outpatient (REF) | payer SELFPAY ==
[2021-08-13 17:16] LABS: Abs Immature Grans 0.02 10^3/uL (0.0-0.06); Absolute Basophil Count 0.03 10^3/uL (0.0-0.2); Absolute Eosinophil Count 0.13 10^3/uL (0.0-0.7); Absolute Lymphocyte Count 0.73 10^3/uL (1.2-3.4); Absolute Monocyte Count 0.38 10^3/uL (0.1-0.8); Absolute Neutrophil Count 3.53 10^3/uL (1.2-6.7); Basophils % 0.6; Eosinophils % 2.7; HGB 12.4 g/dL (13.5-17.5); Immature Grans % 0.4; Lymphocytes % 15.1; MCH 31.8 pg (27.0-33.0); MCHC 31.8 % (32.0-36.0); MPV 9.6 fL (8.0-11.0); Monocytes % 7.9; Neutrophils % 73.3; Nucleated RBC 0 %; Platelet Count 205 10^3/uL (130-400); RDW 13.9 % (11.8-14.1); RDW-SD 50.8 fL; WBC 4.82 10^3/uL (4.4-10.8)
[2021-08-13 18:05] LABS: Hemoglobin A1C 5.5 % (<5.7)
[2021-08-13 18:31] LABS: ALT 30 U/L (16-63); AST 17 U/L (15-37); Albumin 3.3 g/dL (3.4-5.0); Alkaline Phosphatase 71 U/L (46-116); Anion Gap 7.1 mmol/L (3-11); BUN 20 mg/dL (7-18); Bilirubin, Total 0.3 mg/dL (0.2-1.0); CO2 26.9 mmol/L (21.0-32.0); CREATININE 1.3 mg/dL (0.70-1.30); Calcium 8.5 mg/dL (8.5-10.1); Chloride 107 mmol/L (98-107); Estimated GFR 53.53 (mL/min/1.73m2); Ferritin 212 ng/mL (26-388); Folate 11.1 ng/mL (8.6-20.0); Glucose 113 mg/dL (74-106); Magnesium 2.3 mg/dL (1.8-2.4); Potassium 4.6 mmol/L (3.5-5.1); Sodium 141 mmol/L (136-145); TSH (W/Ref FT4) 3.55 uIU/mL (0.36-3.74); Total Protein 6.5 g/dL (6.4-8.2); Vitamin B12 470 pg/mL (193-986)
[2021-08-13 18:49] LABS: Iron 66 ug/dL (65-175); Total Iron Binding Capacity 275 ug/dL (250-450); Transferrin Sat 24 % (20-55)
== END 2021-08-13 16:37 | disposition home or self-care (01) ==
LOC: LBN 16:36
PROVIDERS: PCP Internal Medicine Geriatric Medicine; Visit Provider Nurse Practitioner Gerontology
DX: G20 Parkinson's disease (principal); R26.81 Unsteadiness on feet; F02.81 Dementia in other diseases classified elsewhere, unspecified severity, with behavioral disturbance
CPT/HCPCS: 80053; 82607; 82728; 82746; 83036; 83540; 83550; 83735; 84443; 85025

== ENCOUNTER 2021-08-15 13:25 | Outpatient (REF) | payer SELFPAY ==
[2021-08-18 16:27] LABS: COVID-19 RT-PCR Result Not Detected ((See Note))
== END 2021-08-15 13:26 | disposition home or self-care (01) ==
LOC: LBN 13:25
PROVIDERS: PCP Internal Medicine Geriatric Medicine; Visit Provider Internal Medicine
DX: Z20.822 Contact with and (suspected) exposure to COVID-19 (principal)
CPT/HCPCS: U0003

== ENCOUNTER 2021-09-11 19:51 | Outpatient (REF) | payer MEDICARE, SELFPAY ==
[2021-09-11 21:13] LABS: Anion Gap 9.1 mmol/L (3-11); BUN 18 mg/dL (7-18); CO2 28.9 mmol/L (21.0-32.0); CREATININE 1.2 mg/dL (0.70-1.30); Calcium 8.5 mg/dL (8.5-10.1); Chloride 108 mmol/L (98-107); Estimated GFR 58.71 (mL/min/1.73m2); Glucose 90 mg/dL (74-106); Potassium 5.2 mmol/L (3.5-5.1); Sodium 146 mmol/L (136-145)
== END 2021-09-11 19:52 | disposition home or self-care (01) ==
LOC: LBN 19:51
PROVIDERS: PCP Internal Medicine Geriatric Medicine; Visit Provider Internal Medicine
DX: I21.09 ST elevation (STEMI) myocardial infarction involving other coronary artery of anterior wall (principal); R26.81 Unsteadiness on feet; G20 Parkinson's disease; F01.51 Vascular dementia, unspecified severity, with behavioral disturbance
CPT/HCPCS: 80048

== ENCOUNTER 2021-09-16 16:12 | Outpatient (REF) | payer MEDICARE, SELFPAY ==
[2021-09-16 18:31] LABS: Potassium 4.5 mmol/L (3.5-5.1)
== END 2021-09-16 16:13 | disposition home or self-care (01) ==
LOC: LBN 16:12
PROVIDERS: PCP Internal Medicine Geriatric Medicine; Visit Provider Internal Medicine
DX: I47.2 Ventricular tachycardia (principal); I21.09 ST elevation (STEMI) myocardial infarction involving other coronary artery of anterior wall; F01.51 Vascular dementia, unspecified severity, with behavioral disturbance
CPT/HCPCS: 84132

== ENCOUNTER 2021-10-30 14:00 | Outpatient (REF) | payer MEDICARE, SELFPAY ==
[2021-10-30 15:57] LABS: VALPROIC ACID 42.3 ug/mL
[2021-10-30 22:24] LABS: Anion Gap 15.5 mmol/L (3-11); BUN 22 mg/dL (7-18); CO2 22.5 mmol/L (21.0-32.0); CREATININE 1.4 mg/dL (0.70-1.30); Calcium 8.5 mg/dL (8.5-10.1); Chloride 104 mmol/L (98-107); Estimated GFR 49.14 (mL/min/1.73m2); Glucose 158 mg/dL (74-106); Potassium 4.2 mmol/L (3.5-5.1); Sodium 142 mmol/L (136-145)
== END 2021-10-30 14:01 | disposition home or self-care (01) ==
LOC: LBN 14:00
PROVIDERS: PCP Internal Medicine Geriatric Medicine; Visit Provider Internal Medicine
DX: G20 Parkinson's disease (principal); F02.81 Dementia in other diseases classified elsewhere, unspecified severity, with behavioral disturbance; R26.81 Unsteadiness on feet
CPT/HCPCS: 80048; 80164

== ENCOUNTER 2022-03-30 12:39 | Emergency (ER) | payer MEDICARE, MEDICAID, SELFPAY ==
[2022-03-30 12:33] VITALS: BP 125/102; PULSE 78; RESP 13; TEMP 36.6; O2SAT 97
[2022-03-30 12:44] VITALS: O2SAT 96
[2022-03-30 12:45] VITALS: BP 125/102; PULSE 61; PULSE 74; RESP 9; O2SAT 97
--- NOTE | 2022-03-30 12:45 | DI.CT_ITS ---
Exam(s) CT ABDOMEN PELVIS WO EXAM: CT ABDOMEN PELVIS WO CLINICAL HISTORY: llq pain. TECHNIQUE: Imaging Protocol: Axial computed tomography images with coronal and sagittal reformatted images were created and reviewed. Oral: yes / no COMPARISON: CT CT BRAIN NECK CTA from 06/02/2021 FINDINGS: Exam is somewhat limited by patient motion. ABDOMEN: Lung Bases: Normal where visualized. Bilateral gynecomastia. Liver: Normal density. No measurable mass. Gallbladder and biliary tract: No radiodense calculus or dilation. Pancreas: Normal density, no abnormal calcifications or inflammatory process. Spleen: Normal. Kidneys: Normal size, contour and axis. No radiodense stones or obstructive uropathy. No masses seen. Adrenal glands: No masses seen. Lymph nodes: Within normal limits. Abdominal Aorta: Abdominal portion non-dilated. Atherosclerotic changes. PELVIS: Bladder: Symmetric distention, mild wall thickening. Bowel: No obstruction or bowel wall thickening. Appendix normal. Normal quantity of stool. Peritoneal cavity: No ascites, collection or mesenteric inflammatory response. Reproductive organs: Enlarged prostate with calcifications. Bones: Degenerative changes in the spine and hips.. No acute fractures.. IMPRESSION: No acute abnormality. RADIATION DOSE DELIVERED: 1,125.82mGy.cm Total DLP DATA REPOSITORY: All CT scans at this facility are submitted to the National Radiology Data Registry (NRDR) Dose Index Registry (DIR) with the [employer] (ACR). RADIATION OPTIMIZATION: All CT scans at this facility use at least one of these dose optimization te chniques: automated exposure control; mA and/or kV adjustment per patient size (includes targeted exa ms where dose is matched to clinical indication); or iterative reconstruction.
--- NOTE | 2022-03-30 12:45 | DI.CT_ITS ---
Exam(s) CT HEAD CERVICAL SPINE WO EXAM: CT HEAD CERVICAL SPINE WO CLINICAL HISTORY: fall. TECHNIQUE: Imaging Protocol: Axial computed tomography images with coronal and sagittal reformatted images were created and reviewed COMPARISON: CT CT BRAIN NECK CTA from 06/02/2021 FINDINGS: Head CT Mildly limited limited by streak artifact and motion.. Ventricles and Extra axial spaces: Normal in size and morphology for the patient's age. Hemorrhage: None. Cerebral parenchyma: Atrophy consistent with patient's age. Midline shift: None. Brainstem/Cerebellum: Normal. Calvarium: Normal. Visualized Paranasal sinuses/Mastoids: [id number] chronic ethmoid sinus disease. Cervical Spine CT BONES: Vertebral body heights are maintained. Straightening of the normal kyphosis secondary to degen erative changes. There is no evidence of acute fracture. Degenerative disc changes and facet degenerative changes are seen . SOFT TISSUES: No paraspinal hematoma. The airway appears intact. No pneumothorax is seen at the lung apices. Chronic appearing calcifications in the posterior soft t issues. IMPRESSION: Head CT: No acute abnormality. C-spine CT: Degenerative changes, no acute abnormality. RADIATION DOSE DELIVERED: 1,189.69mGy.cm Total DLP DATA REPOSITORY: All CT scans at this facility are submitted to the National Radiology Data Registry (NRDR) Dose Index Registry (DIR) with the [employer] (ACR). RADIATION OPTIMIZATION: All CT scans at this facility use at least one of these dose optimization te chniques: automated exposure control; mA and/or kV adjustment per patient size (includes targeted exa ms where dose is matched to clinical indication); or iterative reconstruction.
[2022-03-30 12:46] VITALS: BP 92/53; PULSE 64; PULSE 73; RESP 14; O2SAT 98
[2022-03-30 12:50] VITALS: BP 87/52; PULSE 60; PULSE 64; RESP 14; O2SAT 98
[2022-03-30] MEDS: Normal Saline 1,000 ML 1000 ML IV (13:00)
--- NOTE | 2022-03-30 13:05 | W.ED.GENAD ---
Discharge Plan Disposition Patient Disposition: HOME Condition: Stable Discharge Details Clinical Impression: Dementia associated with other underlying disease with behavioral disturbance, Confusion Primary Care Provider: Mariangel Tubbs ED Provider: Arthru Conner Home Meds and New Rx's Prescriptions: Continued mirtazapine [Remeron] 15 mg Tablet 15 mg PO TID Discharge Instructions Additional Instructions: your blood work and cat scans did not show concerning findings at this time follow up with your primary care provider as needed if you feel more ill, have severe pain or difficulty breathing return to the emergency department Medical Decision Making 76 yo male with hx of dementia with behavioral disturbances who resides at the [facility] comes in after a fall around 930am. The fall was unwitness and was found on the ground. He was helped off the ground and since then the staff has felt he has been combative and so was brought here. HE is laying in the bed and doesn't provide any history or follow commands. When I lift his arms and legs off the bed he slowly lowers them to the bed. HE has no noticeable facial droop, perrl. When I palpated his abodmen he says ow when I push on the llq, no guarding or rebound and when I ask where he hurts he lifts his left arm up and points to the llq. No significant signs of head trauma. Given the fall will obtain head and c spine and given llq tenderness obtain ct to evaluate for diverticulitis. Will also evaluate for electrolyte abnormality as cause for his change in mental status though this could be related to his underlying dementia. Colst form states he is dnr/dni and would want limited interventions which seems similar to his prior wishes per chart review. labs and imaging show no acute findings, has no midline c spine so c spine cleared. HIs is now at bedside and state he is at his baseline and has good days and bad and wants him transferred back to the [facility]. Given he is at his baseline and reassuring workup suspect this was dementia with behavioral component. Will d/c and advised to f/u with pcp and return precautions given Differential Diagnosis Differential Diagnosis: dementia, concussion, electrolyte abnormality Medical Records Medical records reviewed: Yes I reviewed the patient's medical records. Imaging Data Radiologic Study: Attestation: I personally reviewed and interpreted this imaging study as follows: Imaging: CT Scan Radiologist's impression: IMPRESSION: Head CT: No acute abnormality. C-spine CT: Degenerative changes, no acute abnormality. Radiologic Study #2: Attestation: I personally reviewed and interpreted this imaging study as follows: Imaging: CT Scan Radiologist's impression: EXAM:? CT ABDOMEN ? PELVIS WO CLINICAL HISTORY: ? llq pain.? TECHNIQUE:? Imaging Protocol: Axial computed tomography images with coronal and sagittal reformatted images were created and reviewed. Oral: yes / no COMPARISON:? CT CT BRAIN ? NECK CTA from 06/02/2021 FINDINGS: Exam is somewhat limited by patient motion. ABDOMEN: Lung Bases: Normal where visualized. Bilateral gynecomastia. Liver: Normal density. No measurable mass. Gallbladder and biliary tract: No radiodense calculus or dilation. Pancreas: Normal density, no abnormal calcifications or inflammatory process. Spleen: Normal. Kidneys: Normal size, contour and axis. No radiodense stones or obstructive uropathy. No masses seen. Adrenal glands: No masses seen. Lymph nodes: Within normal limits. Abdominal Aorta: Abdominal portion non-dilated. Atherosclerotic changes. PELVIS:? Bladder: Symmetric distention, mild wall thickening. Bowel: No obstruction or bowel wall thickening.? Appendix normal.? Normal quantity of stool.? Peritoneal cavity: No ascites, collection or mesenteric inflammatory response. Reproductive organs: Enlarged prostate with calcifications. Bones: Degenerative changes in the spine and hips..? No acute fractures..? IMPRESSION: No acute abnormality. Lab Data Lab results reviewed: Yes I reviewed the patient's lab results. HPI General Mode of arrival: EMS. Date/Time Provider Initiated Documentation: 03/30/22 12:45. Limitations to Documentation: altered mental status. Information obtained by: EMS. History of Present Illness 76 year old M presents to the emergency department with the chief complaint of fall, not acting himself, described as moderate, Patient started experiencing this hour(s) (3) and it has been constant. No relieving factors improve symptom(s), No exacerbating factors reported . Patient notes confusion. Related Data Home Medications Medication Instructions Recorded Confirmed mirtazapine 15 mg tablet (Remeron) 15 mg PO TID 06/02/21 02/26/22 Allergies Allergy/AdvReac Type Severity Reaction Status Date / Time No Known Allergies Allergy Unverified 06/06/21 21:24 General Stated Complaint: HeadInjury GAGE: 2 Review of Systems Unobtainable due to mental status PFSH All Active Problems (Updated 03/30/22 @ 14:47 by Arthur Conner MD) COVID-19 (Acute) DVT prophylaxis (Acute) Discharge planning issues (Acute) Insomnia (Chronic) Dementia associated with other underlying disease with behavioral disturbance (Acute) Confusion (Chronic) Medical History Dementia associated with other underlying disease with behavioral disturbance Insomnia Social History Smoking/Tobacco Use Status: Former Tobacco Use Smoking risk assessment performed?: Yes Alcohol Intake: former Drug use: Never Substance use type: does not use Do you feel safe at home: Yes Do you feel safe in your relationship?: Yes Exam HENMT Head: normal to inspection Ears: external ears normal General nose exam: external nose normal Mouth: moist mucous membranes Eyes General: appearance normal, both eyes and all related structures Neck Neck: normal visual inspection Resp Effort & Inspection: normal respiratory effort and able to speak in complete sentences Cardio Rate: regular rate Skin General skin exam: no rashes or lesions noted Extrem General: normal to inspection Course Vital Signs Vital signs: Vital Signs Temperature 36.6 C 03/30/22 12:33 Pulse 78 03/30/22 12:33 Respiratory Rate 13 03/30/22 12:33 Blood Pressure 125/102 H 03/30/22 12:33 Pulse Oximetry 97 03/30/22 12:33 Temperature 36.6 C 03/30/22 12:33 Temperature Source Skin 03/30/22 12:33 Pulse 60 03/30/22 12:50 Pulse 64 03/30/22 12:50 Respiratory Rate 14 03/30/22 12:50 Blood Pressure 87/52 L 03/30/22 12:50 Blood Pressure Mean 61 03/30/22 12:50 Pulse Oximetry 98 03/30/22 12:50 Oxygen Delivery Method Room Air 03/30/22 12:33 Oxygen Flow Rate 0 03/30/22 12:33
[2022-03-30 13:22] LABS: Abs Immature Grans 0.03 10^3/uL (0.0-0.06); Absolute Basophil Count 0.03 10^3/uL (0.0-0.2); Absolute Eosinophil Count 0.07 10^3/uL (0.0-0.7); Absolute Lymphocyte Count 0.89 10^3/uL (1.2-3.4); Absolute Neutrophil Count 4.25 10^3/uL (1.2-6.7); Basophils % 0.5; Eosinophils % 1.2; HCT 35.8 % (40.0-50.0); HGB 12.1 g/dL (13.5-17.5); Immature Grans % 0.5; Lymphocytes % 15.7; MCH 32.4 pg (27.0-33.0); MCHC 33.8 % (32.0-36.0); MCV 96 fL (80-95); MPV 9.4 fL (8.0-11.0); Monocytes % 7.1; Platelet Count 239 10^3/uL (130-400); RBC 3.74 10^6/uL (4.36-5.78); RDW 12.3 % (11.8-14.1); RDW-SD 42.7 fL; WBC 5.67 10^3/uL (4.4-10.8)
[2022-03-30 13:37] LABS: Lipase 41 U/L (73-393)
[2022-03-30 14:44] LABS: ALT 20 U/L (16-63); AST 11 U/L (15-37); Albumin 3.4 g/dL (3.4-5.0); Alkaline Phosphatase 66 U/L (46-116); Anion Gap 7.9 mmol/L (3-11); BUN 23 mg/dL (7-18); Bilirubin, Total 0.5 mg/dL (0.2-1.0); CO2 30.1 mmol/L (21.0-32.0); CREATININE 1.3 mg/dL (0.70-1.30); Calcium 8.8 mg/dL (8.5-10.1); Chloride 106 mmol/L (98-107); Estimated GFR 53.39 (mL/min/1.73m2); Glucose 98 mg/dL (74-106); Potassium 4.5 mmol/L (3.5-5.1); Sodium 144 mmol/L (136-145); Total Protein 6.8 g/dL (6.4-8.2)
== END 2022-03-30 15:14 | disposition home or self-care (01) ==
PROVIDERS: Emergency Provider Emergency Medicine; PCP Internal Medicine Geriatric Medicine
DX: F03.91 Unspecified dementia, unspecified severity, with behavioral disturbance (principal); R41.0 Disorientation, unspecified; W19.XXXA Unspecified fall, initial encounter
CPT/HCPCS: 36415; 80053; 83690; 96360; 99284; 70450; 72125; 74176; 85025; 99283

== ENCOUNTER 2022-04-29 15:51 | Outpatient (REF) | payer MEDICARE, MEDICAID, SELFPAY | END 2022-04-29 15:52 | disposition home or self-care (01) | LOC: LBN 15:51 | PROVIDERS: PCP Internal Medicine Geriatric Medicine; Visit Provider Nurse Practitioner Gerontology | DX: F80.1 Expressive language disorder (principal); R26.81 Unsteadiness on feet; F02.81 Dementia in other diseases classified elsewhere, unspecified severity, with behavioral disturbance; S91.301A Unspecified open wound, right foot, initial encounter | CPT/HCPCS: 87070; 87205 ==